=== PATIENT | female | born 2000 | race Caucasian/White ===

== ENCOUNTER 2024-10-05 20:53 | Observation (INO) | payer MEDICAID, SELFPAY ==
[2024-10-05] VITALS (7 sets, daily range): BP systolic 111–116; BP diastolic 65–66; PULSE 73–86; O2SAT 95–98; BMI 21.2
[2024-10-05 21:27] LABS: Add Urine Microscopic? YES; Appearance Urine Cloudy (Clear); Bacteria Urine Rare /hpf; Bilirubin Urine Negative (Negative); Blood Urine Negative (Negative); Color Urine Yellow (Yellow); Glucose Urine UA Negative (Negative); Ketones Urine Negative (Negative); Leukocyte Esterase Ur Trace LEU/UL (Negative); Nitrate Urine Negative (Negative); Non Pathogenic Casts 0-2; Protein Urine Negative (Negative); RBC Urine 0-2 /hpf (0-2); Specific Grav Ur 1.008 (1.001-1.035); Squamous Epithelial Cell Urine None Seen /hpf (Few); Urobilinogen Urine 0.2 mg/dL (<2.0); WBC Urine 0-5 /hpf (0-3); pH Urine 7.5 (5.0-9.0)
--- NOTE | 2024-10-05 21:29 | OBADM ---
This patient, Gillian Sullivan, admitted to the OB room [facility] for observation. Patient/family oriented to hospital policies and general routines including ID bracelet, bed and alarms, visiting hours, pain management, procedures, bathroom and other care routines, personal items, smoking policy, room service/diet, and visiting hours. Patient/Family are encouraged to report perceived risks to care and to ask questions if they do not understand what they are told or what they should do.
[2024-10-05] MEDS: NITROFURANTOIN MONOHYD MACROCR 100 MG CAP PO (22:04)
--- NOTE | 2024-10-05 22:15 | PC.NURSE ---
2052- Pt is a with a due date of 02/08/2025 that presents to unit with c/o cramping and LOF that started this evening. Pt denies complications with this . Pt denies vaginal bleeding and abdomen is soft to palpation. 2143- called and notified of pts arrival to unit. RN reported UA results, negative ROM+, as well as heart tones and presence of uterine irritability. Orders received for abx for UTI as well as discharge orders.
--- NOTE | 2024-10-06 10:20 | P.PNOB_ITS ---
OB - Triage/Final Diagnosis Visit Information Comments/Additional reasons for admission: I have assessed the risk for this patient, Gillian Sullivan, and determined that she would benefit from observation care. Evaluation Laboratory results: Laboratory Tests 10/05/24 21:18 Urine Color Yellow Urine Appearance Cloudy H Urine pH 7.5 Ur Specific [place] 1.008 Urine Protein Negative Urine Glucose (UA) Negative Urine Ketones Negative Ur Blood (Man) Negative Urine Nitrate Negative Urine Bilirubin Negative Urine Urobilinogen 0.2 Leukocyte Esterase Rfl Trace H Urine RBC 0-2 Urine WBC 0-5 Ur Squamous Epith Cells None seen Urine Bacteria Rare Urine Casts 0-2 Vital signs: Vital Signs - 24 hr 10/05/24 21:22 10/05/24 21:27 10/05/24 21:29 Pulse Rate 76 Blood Pressure 116/66 Pulse Oximetry 95 96 Oxygen Delivery Room Air 10/05/24 21:31 10/05/24 21:32 10/05/24 21:37 Pulse Rate 77 Blood Pressure 111/65 Pulse Oximetry 96 96 Oxygen Delivery 10/05/24 21:42 10/05/24 21:47 Pulse Rate Blood Pressure Pulse Oximetry 96 98 Oxygen Delivery Final Diagnosis (1) Vaginal discharge: Code(s): N89.8 - Other specified noninflammatory disorders of vagina Status: Acute (2) UTI (urinary tract infection): Code(s): N39.0 - Urinary tract infection, site not specified Status: Acute
== END 2024-10-05 22:15 | disposition home or self-care (01) ==
PROVIDERS: Admitting Provider Obstetrics & Gynecology; Visit Provider Obstetrics & Gynecology
DX: O26.899 Other specified pregnancy related conditions, unspecified trimester (principal); N89.8 Other specified noninflammatory disorders of vagina; O23.40 Unspecified infection of urinary tract in pregnancy, unspecified trimester; N39.0 Urinary tract infection, site not specified; Z3A.00 Weeks of gestation of pregnancy not specified
CPT/HCPCS: 59025; 81001; A9270; G0378; G0379

== ENCOUNTER 2024-11-29 14:22 | Observation (INO) | payer OTHER, SELFPAY ==
[2024-11-29] VITALS (8 sets, daily range): BP systolic 112–125; BP diastolic 72–76; PULSE 78–102; O2SAT 99–100; BMI 23.9
--- OUTSIDE RECORDS SUMMARY | 2024-11-29 14:30 | XMS_ITS | Data Portability ---
Author Organization [employer] , [facility] Address [address] [place] [address] Assessment No assessment recorded. Plan of Treatment Reminders Order Date Submit Date Provider Last Modified By Organization Details Last Modified Time Details Appointments OB RETURN EST 2024 12:45P M Divina Stevenson MD Not available Not available Not available Lab CBC w/ auto diff 2024 025 [facility], [address] [place], [address], 11/08/2024 12:24:30 obstetric screen, serum or blood 2024 025 [facility], [address] [place], [address], 11/07/2024 13:58:29 glucose tolerance test, post-50G, 1-hour 2024 025 [facility], [address] [place], [address], 10/25/2024 10:51:24 Referral None recorded. Procedures None recorded. Surgeries None recorded. Imaging US, obstetric , limited 2024 025 [facility] Not available 10/24/2024 19:04:05 US, obstetric , 2nd or 3rd trimester 2023 024 [facility] Not available 09/06/2024 12:16:23 Medication Orders ondansetr on HCl 4 mg tablet 2024 025 [id number] [facility], [address] , [place], [address], 11/27/2024 17:54:57 Patient TargetsNo targets recorded. Patient Instructions Encounter Date Encounter Id Patient Instructions Last Modified By Organization Details Last Modified Time 10/24/2024 [id number] learning about screening for gestational diabetes [email or web address] Not available 10/24/2024 10:21:24 Reason for Referral None Reported. Results Created Date Observation Date Name Description Value Unit Range Abnormal Flag Note LastModifiedBy Organization Detail LastModifiedTime 08/06/20 24 08/08/2024 MATER NAL SERUM AFP interpretati on: Scree n negat mary for open NTD. Not Available [facility] [address], [address], 08/08/2024 14:38:55 08/06/20 24 08/08/2024 MATER NAL SERUM AFP risk for ontd 1 IN [address] Not Available [address], [address], 08/08/2024 14:38:55 08/06/20 24 08/08/2024 MATER NAL SERUM AFP AFP, serum 49.7 NG/mL Not Available [facility] [address], [address], 08/08/2024 14:38:55 08/06/20 24 08/08/2024 MATER NAL SERUM AFP AFP MOM 1.30 Not Available [facility] [address], [address], 08/08/2024 14:38:55 08/06/20 24 08/08/2024 MATER NAL SERUM AFP comments: This patie nt's TEREZA (maddie mated date of richardson tamie) was used to calcu late the gesta martell l age. The AFP test resul t indic ates that this patie nt is scree n negat mary for open NTD. It shoul d be noted that naseem l test resul ts can never guara ntee the of a naseem l baby and that [facility] have some type of physi amber or menta l defec t, many of which are undet ectab le throu gh any known prena gab diagn ostic techn ique. Not Available [employer] [facility] [address] [place], [address], 08/08/2024 14:38:55 08/06/20 24 08/08/2024 MATER NAL SERUM AFP comment This is a scree lester test, not a diagn ostic test. This risk asses sment repor t is based in part on demog raphi c data provi ded by the order ing physi katherine. Pleas e notif y the labor atory promp tly if any data are incor rect. For medina tance with recal culat ions, pleas e call your local [facility] at[facility] . For medina tance with inter preta tion of these resul ts, pleas e conta ct your Local [facility] jose rafael ic couns elor or call [phone] INFO( [phone]). Inter preti ve Cutof fs Scree n Posit mary for Open NTD: > or = 2.50 adjus kike MOM > or = 1.90 adjus kike MOM for insul in-de pende nt diabe tics > or = 4.00 adjus kike MOM for twins > or = 3.50 adjus kike MOM for twins insul in-de pende nt diabe tics > or = 4.50 adjus kike MOM for tripl ets For addit ional infor claudia dobbins e refer to http: //[facility] josé luis mcbride.que stdia gnost ics.c om/fa q/FAQ 74v1 (This link is being provi ded for infor erasmo moreau/ educa martell l purpo ses only. ) Not Available [facility] [address] [place], [address], 08/08/2024 14:38:55 08/06/20 24 08/08/2024 MATER NAL SERUM AFP calc'd gestational age 16.7 weeks Not Available [facility] [address] [address], [place], [address], 08/08/2024 14:38:55 08/06/20 24 08/08/2024 MATER NAL SERUM AFP maternal weight 144 lbs Not Available [address], [address], 08/08/2024 14:38:55 08/06/20 24 08/08/2024 MATER NAL SERUM AFP est'd date of delivery 2024 Not Available [address], [address], 08/08/2024 14:38:55 08/06/20 24 08/08/2024 MATER NAL SERUM AFP tereza determined by LMP Not Available [address], [address], 08/08/2024 14:38:55 08/06/20 24 08/08/2024 MATER NAL SERUM AFP mother's ethnic origin CAUCAS DEANNA Not Available [address], [address], 08/08/2024 14:38:55 08/06/20 24 08/08/2024 MATER NAL SERUM AFP number of fetuses 1 Not Available [address], [address], 08/08/2024 14:38:55 08/06/20 24 08/08/2024 MATER NAL SERUM AFP insulin depend diabetic NO Not Available [address], [address], 08/08/2024 14:38:55 08/06/20 24 08/08/2024 MATER NAL SERUM AFP repeat specimen NO Not Available [address], [address], 08/08/2024 14:38:55 08/06/20 24 08/08/2024 MATER NAL SERUM AFP Hx of neural tube defects NO Not Available [address], [address], 08/08/2024 14:38:55 08/06/20 24 08/08/2024 MATER NAL SERUM AFP prev down synd NO Not Available [facility] [address] [place], [address], 08/08/2024 14:38:55 08/06/20 24 08/08/2024 MATER NAL SERUM AFP donor egg NO Not Available [facility] [address] [place], [address], 08/08/2024 14:38:55 08/06/20 24 08/08/2024 MATER NAL SERUM AFP donor age: egg retrieval NOT GIVEN Not Available [facility] [address] [place], [address], 08/08/2024 14:38:55 10/24/19 25 10/25/2024 (50G) 1HR - GLUCO SE HEBER ANCE TEST, GESTA MARTELL L SCREE N glucose (50g) 1 hour 111 mg/dL <135 normal Not Available [facility] [address] [place] [address], [address], 10/25/2024 10:51:24 11/05/19 25 11/07/2024 OB 28W (SYPH HIV 1/2 Ag/Ab Non-Re active non-re active normal Not Available [address], [address], 11/07/2024 13:58:29 11/05/19 25 11/07/2024 OB 28W (SYPH syphilis Ab Non-Re active non-re active normal Not Available [address], [address], 11/07/2024 13:58:29 11/05/19 25 11/07/2024 CBC (INCL UDES DIFF/ PLT) WBC 11.1 thous and/u L 4.0 - 9.8 high Not Available [facility] [address] [place] [address], [address], 11/08/2024 12:24:30 11/05/19 25 11/07/2024 CBC (INCL UDES DIFF/ PLT) RBC 3.8 mai on/uL 3.9 - 4.9 low Not Available [employer] [address] [place] [address], [address], 11/08/2024 12:24:30 11/05/19 25 11/07/2024 CBC (INCL UDES DIFF/ PLT) hemoglobin 11.2 g/dL 11.8 - 14.8 low Not Available [employer] [address] [place] [address], [address], 11/08/2024 12:24:30 11/05/19 25 11/07/2024 CBC (INCL UDES DIFF/ PLT) hematocrit 34.6 % 35.5 - 44.0 low Not Available [employer] [address] [place] [address], [address], 11/08/2024 12:24:30 11/05/19 25 11/07/2024 CBC (INCL UDES DIFF/ PLT) MCV 91.3 fL 82.0 - 99.0 normal Not Available [employer] [address] [place] [address], [address], 11/08/2024 12:24:30 11/05/19 25 11/07/2024 CBC (INCL UDES DIFF/ PLT) MCH 29.6 pg 27.2 - 32.6 normal Not Available [employer] [address] [place] [address], [address], 11/08/2024 12:24:30 11/05/19 25 11/07/2024 CBC (INCL UDES DIFF/ PLT) MCHC 32.4 g/dL 31.5 - 35.5 normal Not Available [employer] [address] [place] [address], [address], 11/08/2024 12:24:30 11/05/19 25 11/07/2024 CBC (INCL UDES DIFF/ PLT) RDW-CV 13.5 % 11.5 - 14.5 normal Not Available [address], [address], 11/08/2024 12:24:30 11/05/19 25 11/07/2024 CBC (INCL UDES DIFF/ PLT) platelet 287 thous and/u L 140 - 350 normal Not Available [address], [address], 11/08/2024 12:24:30 11/05/19 25 11/07/2024 CBC (INCL UDES DIFF/ PLT) MPV 10.3 fL 9.3 - 12.4 normal Not Available [address], [address], 11/08/2024 12:24:30 11/05/19 25 11/07/2024 CBC (INCL UDES DIFF/ PLT) absolute neutrophil 8.40 thous and/u L 1.90 - 7.00 high Not Available [address], [address], 11/08/2024 12:24:30 11/05/19 25 11/07/2024 CBC (INCL UDES DIFF/ PLT) absolute lymphocyte 1.54 thous and/u L 0.70 - 4.50 normal Not Available [address], [address], 11/08/2024 12:24:30 11/05/19 25 11/07/2024 CBC (INCL UDES DIFF/ PLT) absolute monocyte 0.89 thous and/u L 0.10 - 1.30 normal Not Available [address], [address], 11/08/2024 12:24:30 11/05/19 25 11/07/2024 CBC (INCL UDES DIFF/ PLT) absolute eosinophil 0.10 thous and/u L <0.70 normal Not Available [address], [address], 11/08/2024 12:24:30 11/05/19 25 11/07/2024 CBC (INCL UDES DIFF/ PLT) absolute basophil 0.10 thous and/u L <0.20 normal Not Available [address], [address], 11/08/2024 12:24:30 11/05/19 25 11/07/2024 CBC (INCL UDES DIFF/ PLT) absolute immature granulocyte 0.10 thous and/u L <0.03 high Not Available [address], [address], 11/08/2024 12:24:30 09/06/20 24 09/05/2024 US, obste tric, 2nd or 3rd trime ster No observ ation record ed. [email or web address] [address], [place], [address], 09/11/2024 18:07:10 10/24/19 25 10/24/2024 US, obste tric, limit ed No observ ation record ed. [email or web address] [address], [place], [address], 10/27/2024 17:56:28 Result Notes None recorded. Problems Name Problem SNOMED Code Status Onset Date Resolution Date Notes Provider Name and Address Organization Details Recorded Time 69513020 Active 2023 UMANG RIDDLE NP [address] [place], [address], [facility] 4 15:41:01 Varicella non-immune 532473111 Active UMANG RIDDLE NP [address] [place], [address], [employer] [facility] 4 13:48:05 Rubella non-immune 265018604 Active UMANG RIDDLE NP [address] [place], [address], [facility] 4 13:48:12 Large for gestation age fetus 853883099 Active 2024 99%tile on 09/05 UMANG RIDDLE NP [address] [place], [address], [facility] 17:13:25 History of musculoske letal disease 074809462 Active 2024 Will need ane. Consultati on due to scoliosis. UMANG RIDDLE NP [address] [facility], [place], [address], [facility] - [facility] 21:35:00 Problem Notes None recorded. Procedures Surgical History Date Name Laterality Status Provider Name and Address Organization Details Recorded Time 01/15/2023 Date of Last Pap Smear completed Chacha Pham [facility] [employer] [facility] 06/10/2024 14:05:05 Imaging Results Imaging Date Name Status LastModified by Organiz ation Details LastModified Time 09/05/2024 US, obstetric, 2nd or 3rd trimester completed [email or web address] [address], [place], [address], 09/11/2024 18:07:10 10/24/2024 US, obstetric, limited completed [email or web address] [address], [place], [address], 10/27/2024 17:56:28 Procedure Notes None recorded. Medical Equipment None Reported. Allergies Allergen ID Allergen Name Allergen Category Reaction Reaction Severity Criticality Documentation Date Start Date Code Code System Note Provider Name and Address Organization Details Recorded Time 240518 amoxicill in medicatio n Not available Not available Not available 06/10/2024 723 RxNorm Not Available Not Available Not Available 570238 wheat preparati on food,medi cation Not available Not available Not available 06/10/2024 14312 52 RxNorm Not Available Not Available Not Available 560089 mold extract environme nt Not available Not available Not available 06/10/2024 43197 8 RxNorm Not Available Not Available Not Available 871310 doxycycli ne Not available Not available Not available Not available 10/24/20242023 3640 RxNorm vomit ing unrec ogniz ed react ion (text : GI Upset , code: 05677 5008) (from exter nal sourc e) Not Available Not Available Not Available 718188 sulfameth oxazole medicatio n nausea Not available Not available 10/24/20242021 97721 RxNorm Not Available Not Available Not Available 384607 cow milk allergeni c extract food,medi cation nausea Not available Not available 10/24/20242021 32161 5 RxNorm Not Available Not Available Not Available 046000 wheat dextrin food,medi cation nausea Not available Not available 10/24/20242021 40581 6 RxNorm Not Available Not Available Not Available Medications Name Sig Start Date Stop Date Status Note LastModified by Organization Details LastModified Time cimetidine 400 mg tablet active Not Available Not Available Not Available ondansetron HCl 4 mg tablet TAKE 2 TABLETS BY MOUTH TWICE A DAY 2024 active Not Available Not Available Not Avai lable active Not Available Not Avai lable Not Available ondansetron 07/16 completed Not Available Not Available Not Available Vitals Date Recorded Body weight Body mass index (BMI) Body height Systolic blood pressure Diastolic blood pressure Provider Name and Address Organization Details Last Updated DateTime 09/05/2024 89693.44 787 g 20.5 kg/m2 182.88 cm 110 mm[Hg] 74 mm[Hg] [facility] 4 15:59:10 Date Recorded Body weight Body mass index (BMI) Body height Systolic blood pressure Diastolic blood pressure Provider Name and Address Organization Details Last Updated DateTime 10/01/2024 31541.40 972 g 21.2 kg/m2 182.88 cm 98 mm[Hg] 64 mm[Hg] [facility] 5 17:10:31 Date Recorded Body height Body mass index (BMI) Body weight Systolic blood pressure Diastolic blood pressure Provider Name and Address Organization Details Last Updated DateTime 10/24/2024 182.88 cm 21.5 kg/m2 59454.75 g 104 mm[Hg] 70 mm[Hg] Jacquelin Ortiz [facility] [facility] 5 10:01:39 Date Recorded Body height Body mass index (BMI) Body weight Systolic blood pressure Diastolic blood pressure Provider Name and Address Organization Details Last Updated DateTime 11/05/2024 182.88 cm 22.5 kg/m2 47816.61 g 120 mm[Hg] 70 mm[Hg] Michael Nguyễn [place] [facility] 5 16:51:16 Date Recorded Body height Body mass index (BMI) Body weight Systolic blood pressure Diastolic blood pressure Provider Name and Address Organization Details Last Updated DateTime 11/26/2024 182.88 cm 23.3 kg/m2 17936.45 g 114 mm[Hg] 72 mm[Hg] Tameka Short [place] [facility] 5 17:46:29 Social History Question Answer Notes LastModified by [employer] Details LastModified Time Tobacco Smoking Status Never Smoker Chacha Pham debra, [employer] [facility] 06/10/2024 14:05:05 What Is Your Level Of Alcohol Consumption? None [email or web address] Information not available 06/10/2024 If You Are , What Was Your Level Of Alcohol Consumption Prior To ? None [email or web address] Information not available 06/10/2024 Are You Blind Or Do You Have Difficulty Seeing? No [email or web address] Information not available 06/10/2024 Are You Currently Employed? No Information not available 06/10/2024 Are You Deaf Or Do You Have Serious Difficulty Hearing? No [email or web address] Information not available 06/10/2024 What Type Of Diet Are You Following? GLUTENFREE [email or web address] Information not available 06/10/2024 How Many Children Do You Have? 0 [email or web address] Information not available 06/10/2024 What Is Your Relationship Status? Domestic Partner [email or web address] Information not available 06/10/2024 Are You Sexually Active? Yes [email or web address] Information not available 06/10/2024 Do You Use Any Illicit Or Recreational Drugs? No [email or web address] Information not available 06/10/2024 Sex: Unknown Functional Status Question Answer Note LastModified by Organizat ion Details LastModified Time What is your exercise level? Occasional Information not available 06/10/2024 Mental Status None recorded. Family History Relationship Description Onset Age of this Age Resolved Age Notes LastModified by Organization Details LastModified Time Mother Hypertensive disorder [email or web address] Not available 2023 14:05:04 Maternal Grandfather Cerebrovascu lar accident [email or web address] Not available 14:05:04 Medical History Condition Response Anemia Y Gynecological History Statement/Question Response Date of Last Colonoscopy Frequency of Cycle (Q days) 21 Date of LMP 04/14/2024 Most Recent Bone Density Date of Last Pap Smear 01/15/2023 Duration of Flow (days) 4 Most Recent Mammogram Current Control Method Age at Menarche 16 Obstetrics History GPAL:G 1 P 0 0 0 0 Past Encounters Encounter ID Performer Location Encounter Start Date Encounter Closed Date Diagnosis/Indication Diagnosis SNOMED-CT Code Diagnosis ICD10 Code Diagnosis Note [id number] UMANG RIDDLE NP [facility] [address] [place] [address] 06/10/2024 13:48:06 06/11/2024 11:27:11 test positive 464091234 Z32.01 Pt presents today for a confirmati on of visit. has not been previously confirmed at another healthcare facility. Pt voiced that she is happy about this . TVUS today showed:IUP with Cardiac Activity. TEREZA consistent with LMP. TEREZA:01/19/25 Gestationa l Age:8 w 1 dFHT:171 First trimester teaching provided.- --Foods and activities to avoid---We ight gain recommenda tions based on BMI---Safe meds---Bryon entation to practice-- -Delivery locations- --CHESTER visit progressio n---Prenat al vitamins daily---To xoplasmosi s precaution s reviewed-- -[facility] Guide; What to expect on your maternity journey -- -S/S of SAB reviewed and when to seek care RTC for 1st OB, Labs, and Physical. --BMI:19.3 Nausea and vomiting in 9220245275 O21.9 Patient received Zofran from ER and would like a refil. Discussed constipati on with the use of zofran. patient verbalizes understand ing of increase fluid and use of stool softeners. [id number] UMANG RIDDLE NP [facility] [address] [place] [address] 07/16/2024 16:44:51 07/21/2024 10:05:16 Normal 48628807 Z34.92 Pt comes in today for a New/First OB visit.Gest ation:13 w3 dEDD: 01/19 -- PMH: NPMH-- Medication s: Taking daily PNV, Zofran-- Previous OB History:-- Mom/Sister s with hx of Pre-Eclamp noah: denies-- History of Genital HSV:denies -- Genetic Questions in OB Episode Done-- Accepts [employer]. Would like to know gender. Discussed logging on to the [employer] portal to find Gender Results-- PAP due POC-- NOB labs done today-- Accepts Declines UNITY-- PAP due-- Pre-Pregna ncy BMI:19.3-- RTC 4 weeks Guide: Given and reviewed. Toxoplasmo sis precaution s reviewed. Reviewed office visit schedule during . Reviewed Quickening and normal FHTs. screening 2437 48881 Z36.89 Carrier de tection, molecular genetics 8467274 Z14.8 Gastroesop hageal reflux disease without esophagitis 202639132 K21.9 Patient with history Of GERD reports worsening of symptoms in addition to N/V [id number] UMANG RIDDLE NP [facility] [address] [place] [address] 08/06/2024 16:38:02 08/07/2024 09:29:44 Gestation period, 16 weeks 92866528 Z3A.16 Normal 6639667 2 Z34.90 Pt is here for a CHESTER appointmen t. She is taking vitamins. She has no complaints or questions. Reports feeling movement. Denies vaginal bleeding, abdominal cramps, N/V, contractio ns, or LOF. Denies headache, vision changes, swelling of hands or face, and epigastric pain. Discussed PTL and precaution s given. There are no identifiab le risk factors for pre-term labor. [id number] UMANG RIDDLE NP [facility] [address] [place] [address] 09/05/2024 15:54:13 09/08/2024 14:32:04 Gestation period, 20 weeks 46510951 Z3A.20 Normal 7441021 2 Z34.90 Pt is here for a CHESTER appointmen t. She is taking vitamins. She has no complaints or questions. Reports feeling movement. Denies vaginal bleeding, abdominal cramps, N/V, contractio ns, or LOF. Denies headache, vision changes, swelling of hands or face, and epigastric pain. Discussed PTL and precaution s given. There are no identifiab le risk factors for pre-term labor. [id number] UMANG RIDDLEARTHUR [facility] [address] [place] [address] 10/01/2024 17:06:58 10/14/2024 14:28:35 Normal 95791506 Z34.92 Pt is here for a CHESTER appointmen t. She is taking vitamins. She has no complaints or questions. Reports feeling movement. Denies vaginal bleeding, abdominal cramps, N/V, contractio ns, or LOF. Denies headache, vision changes, swelling of hands or face, and epigastric pain. Discussed PTL and precaution s given. There are no identifiab le risk factors for pre-term labor. Gestation period, 24 weeks 941110590 Z3A.24 [id number] UMANG RIDDLE NP [place] [id number] [place] [address] 10/24/2024 09:02:34 10/24/2024 13:44:50 Gestation period, 28 weeks 87334324 Z3A.28 Normal 1060228 2 Z34.93 Pt is here for a CHESTER appointmen t. She is taking vitamins. She has no complaints or questions. Reports feeling movement. Denies vaginal bleeding, abdominal cramps, N/V, contractio ns, or LOF. Denies headache, vision changes, swelling of hands or face, and epigastric pain. Discussed PTL and precaution s given. There are no identifiab le risk factors for pre-term labor. screening 2437 [address] Z36.89 Large for gestation age fetus 831671282 O36.60X0 [id number] UMANG RIDDLEARTHUR [address] [address] 11/05/2024 16:33:46 11/06/2024 11:24:47 Gestation period, 29 weeks 73327809 Z3A.29 High risk 4720 0007 O09.93 Pt is here for a CHESTER appointmen t. She is taking vitamins. She has no complaints or questions. Reports feeling movement. Denies vaginal bleeding, abdominal cramps, N/V, contractio ns, or LOF. Denies headache, vision changes, swelling of hands or face, and epigastric pain. Discussed PTL and precaution s given. There are no identifiab le risk factors for pre-term labor. screening 2437 [address]40[address] Z36.89 [id number] UMANG RIDDLE NP [facility] [address] [place] [address] 11/26/2024 16:50:23 11/28/2024 14:49:13 Gestation period, 32 weeks 8311467 Z3A.32 Normal 5004174 2 Z34.90 Pt is here for a CHESTER esparza. She is taking vitamins. She has no complaints or questions. Reports feeling movement. Denies vaginal bleeding, abdominal cramps, N/V, contractio ns, or LOF. Denies headache, vision changes, swelling of hands or face, and epigastric pain. Discussed PTL and precaution s given. There are no identifiab le risk factors for pre-term labor. Nausea and vomiting in 9467540935 O21.9 Patient received Zofran from ER and would like a refil. Discussed constipati on with the use of zofran. patient verbalizes understand ing of increase fluid and use of stool softeners. Health Concerns Section Related Observation LastModified by Organization Detai ls LastModified Time None Recorded Concern Status LastModified by Organization Details LastModified Time None Recorded Advance Directives Directive None Recorded Payers Encounter Date Sequence Insurance Name Policy Number Policy Adam Covered Member ID Adam Member ID Guarantor Name 10/01/2024 1 [place] Gillian Sullivan [id number] Gillian Sullivan 10/24/2024 1 [place] Gillian Sullivan [id number] Gillian Sullivan 11/05/2024 1 [place] Gillian Sullivan [id number] Gillian Sullivan 11/26/2024 1 [employer] [place] - DOS ON OR AFTER 2020 (MEDICAID REPLACEMENT - HMO) Gillian Sullivan [id number] Gillian Sullivan Notes Date Note Type Note Provider Name and Address Organization Details Recorded Time 09/05/2024 text/html Patient is here today for a routine OB visit. She is currently at {{6 7 8 9 10 11 1 2 13 14 15 16 17 18 19 20 21 22 23 24 25 26 27 28 2 9 30 31 32 33 34 35 36 37 38 39 40 41 20.4#}} weeks gestation. vitamins: {{yes* no}} She {{has* has not}} felt movement.She denies any complaints of the presence of vaginal bleed, leaking fluid, abdominal cramps, nausea, vomiting, headache or visual disturbances. No concerns UMANG RIDDLE NP [address] [place], [address], [facility] 09/05/2024 17:52:35 10/01/2024 text/html Patient is here today for a routine OB visit. She is currently at {{6 7 8 9 10 11 1 2 13 14 15 16 17 18 19 20 21 22 23 24 25 26 27 28 2 9 30 31 32 33 34 35 36 37 38 39 40 41 24.2#}} weeks gestation. vitamins: {{yes* no}} She {{has* has not}} felt movement.She denies any complaints of the presence of vaginal bleed, leaking fluid, abdominal cramps, nausea, vomiting, headache or visual disturbances. Pt. has no concerns. UMANG RIDDLE NP [address] [place], [address], [facility] IV 10/05/2024 21:35:22 10/24/2024 text/html Patient is here today for a routine OB visit. Pt was unable to provide a urine sample. Pt scored a 2 on PHQ-9. She is currently at 27.4 weeks gestation. vitamins: {{yes* no}} She {{has has not has #}} felt movement.She denies any complaints of the presence of vaginal bleed, leaking fluid, abdominal cramps, nausea, vomiting, headache or visual disturbances. Pt. has no concerns. EPDS is UMANG RIDDLE NP [address] [place], [address], [employer] IV 10/24/2024 12:58:42 11/05/2024 text/html Patient is here today for a routine OB visit. She is currently at {{6 7 8 9 10 11 1 2 13 14 15 16 17 18 19 20 21 22 23 24 25 26 27 28 2 9 30 31 32 33 34 35 36 37 38 39 40 41 29.2#}} weeks gestation. vitamins: {{yes* no}} She {{has* has not}} felt movement.She denies any complaints of the presence of vaginal bleed, leaking fluid, abdominal cramps, nausea, vomiting, headache or visual disturbances. No concerns UMANG RIDDLE NP [address] [place], [address], [facility] IV 11/06/2024 09:49:35 11/26/2024 text/html Patient is here today for a routine OB visit. She is currently at {{6 7 8 9 10 11 1 2 13 14 15 16 17 18 19 20 21 22 23 24 25 26 27 28 2 9 30 31 32 33 34 35 36 37 38 39 40 41 32.3#}} weeks gestation. vitamins: {{yes* no}} She {{has* has not}} felt movement.She denies any complaints of the presence of vaginal bleed, leaking fluid, abdominal cramps, nausea, vomiting, headache or visual disturbances. No concerns UMANG RIDDLE NP [address] [place], [address], [facility] [employer] IV 11/27/2024 17:55:05 OBGyn Episode Ob Episode Information Episode Created Date Number of Fetuses Patient Bloodtype Patient rh Status Prepregnancy Weight lbs Domestic Partner Domestic Partner Phone Father Name Corporate Concierge Status 07/17/20 24 1 O Positive OPEN Fetus Data First Name Last Name Admitted to NICU Weight (g) Sex Living Outcome Pediatric Complications Fetus ID Race Codes Race Delivery Type [id number] Problems Problem Notes Problem Name Start Date End Date Resolution Snomed Code Not e History of musculoskeletal disease 10/01/2024 [id number] Will need ane. Consultation due to scoliosis. Large for gestation age fetus 10/01/[id number] 99%tile on 08/18 0 Varicella non-immune [id number] Rubella non-immune [id number] Tereza Calculation Initial Tereza Date Initial Exam Date Initial Exam Provider Initial Ultrasound Date Last Menstrual Period Date Ultra Sound Weeks Gestation 01/19/2025 07/17/2024 06/10/2024 0 Eighteen To Twenty Week Tereza Update Ultra Sound Date Fundal Height At Umbil Quickening Date Ultra Sound Latest Weeks Gestation Final Tereza Confirmed By Final Tereza Confirmed Date Final Tereza Date Ultra Sound Latest Days Gestation 0 01/20/20 25 0 Pre- Flowsheet Flowsheet Date 08/06/2024 Abraham Score Blood Edema Fundus Height Fundus Units Glucose Ketones Leukocytes Nitrite Labor Signs Protein Cervic Dilation Cervic Effacement Cervic Station none neg Type Weight in lbs Pre/Post Dialysis Refused 147.791393524907 BP Diastolic BP Location Tested BP Systolic BP Type 70 L arm 118 sitting Fetus Heart Rate Present A 143 Fetus Movement A Yes Comments AFP today. reporting round l igament pain. PTL adn SAB precautions reviewed. patient concerned about right ovarian cyst reevaluate with anatomy US. RTC 4 wks Flowsheet Date 09/05/2024 Abraham Score Blood Edema Fundus Height Fundus Units Glucose Ketones Leukocytes Nitrite Labor Signs Protein Cervic Dilation Cervic Effacement Cervic Station none neg Type Weight in lbs Pre/Post Dialysis Refused 151.335755632799 BP Diastolic BP Location Tested BP Systolic BP Type 74 110 sitting Fetus Heart Rate Present A 145 Present Fetus Movement A Yes Comments Anatomy complete 99%tile ant erior placenta. RTC in 4 wks Flowsheet Date 10/01/2024 Abraham Score Blood Edema Fundus Height Fundus Units Glucose Ketones Leukocytes Nitrite Labor Signs Protein Cervic Dilation Cervic Effacement Cervic Station none none neg Type Weight in lbs Pre/Post Dialysis Refused 156.586867271020 BP Diastolic BP Location Tested BP Systolic BP Type 64 98 sitting Fetus Heart Rate Present A 140 Present Fetus Movement A Yes Comments No OB complaints. discussed Gtt and early testing due to EFW. unable to do today due to being late in the day. RTC for gtt. Flowsheet Date 10/24/2024 Abraham Score Blood Edema Fundus Height Fundus Units Glucose Ketones Leukocytes Nitrite Labor Signs Protein Cervic Dilation Cervic Effacement Cervic Station none 26 cm Backpain Type Weight in lbs Pre/Post Dialysis Refused Weight 158.247306623356 BP Diastolic BP Location Tested BP Systolic BP Type 70 104 Fetus Heart Rate Present A 147 Fetus Movement A Yes Comments GTT and Growth today,EFW 89% tile. patient educated on LGA as this does not change Gestational age or due date. RTC in 2 wks for 3T labs Flowsheet Date 11/05/2024 Abraham Score Blood Edema Fundus Height Fundus Units Glucose Ketones Leukocytes Nitrite Labor Signs Protein Cervic Dilation Cervic Effacement Cervic Station none Rochelle Hdez 1+ Type Weight in lbs Pre/Post Dialysis Refused With clothes 165.159227435600 BP Diastolic BP Location Tested BP Systolic BP Type 70 120 sitting Fetus Heart Rate Present Fetus Movement A Yes Comments No OB concerns. 3T labs toda y. Patient encouraged to get Tdap, PTL precautions reviewed. RTC in 2 wks Flowsheet Date 11/26/2024 Abraham Score Blood Edema Fundus Height Fundus Units Glucose Ketones Leukocytes Nitrite Labor Signs Protein Cervic Dilation Cervic Effacement Cervic Station 28 cm Gilbert Hdez Type Weight in lbs Pre/Post Dialysis Refused With clothes 171.938308547540 BP Diastolic BP Location Tested BP Systolic BP Type 72 114 sitting Fetus Heart Rate Present A 148 Present Fetus Movement A Yes Comments No OB complaints. Growth US at next appt. PTL precautions reviewed. RTC in 2 wks. Menstrual History Last Menstrual Date Menses Monthly On Bcp Conception Prior Menses Frequency Hcg Plus Date Menarche Onset Age Delivery Information Delivery Date Delivery Type Labor Anesthesia Weeks Gestation Incision Type Labor Labor Length Hrs Delivered By Post Complications Tubal Sterilization Discharge Date Comments Discharge Information Feeding Method Contraceptive Method Maternal HG B and HCT Levels
--- OUTSIDE RECORDS SUMMARY | 2024-11-29 14:30 | XMS_ITS | Clinical Summary ---
Author Organization [facility] Address [address] [place] [id number] Care Team Providers Care Agricultural Researcher Name Role Phone None, Provider MD Primary Care Provider Unavaila ble Allergies Active Allergy Reactions Criticality Noted Date Comments Amoxicillin GI Upset 03/13/2024 Immediate vomiting Doxycycline GI Upset 03/13/2024 vomiting Medications ondansetron (ZOFRAN-ODT) 4 MG disintegrating tablet Take 1 tablet (4 mg total) by mouth every 8 (eight) hours as needed for Nausea. 20 tablet Active Social History Tobacco Use Types Packs/Day Years Used Date Smoking Tobacco: Never Passive Smoke Exposure: Never Smokeless Tobacco: Never Tobacco Cessation:Counseling Given: Not Answered Alcohol Use Standard Drinks/Week Comments Not Currently 0 (1 standard drink = 0.6 oz pur e alcohol) Comments Yes Sex and Gender Information Value Date Recorded Sex Assigned at Not on file Legal Sex Female 10:41 PM CDT Gender Identity Not on file Sexual Orientation Not on file Last Filed Vital Signs Vital Sign Reading Time Taken Comments Blood Pressure 111/73 05/29/2024 1:57 AM CDT Pulse 78 05/29/2024 1:57 AM CDT Temperature 36.8 C (98.3 F) 05/28/2024 10:05 PM CDT Respiratory Rate 16 05/29/2024 1:57 AM CDT Oxygen Saturation 100% 05/29/2024 1:57 AM CDT Inhaled Oxygen Concentration - - Weight 66.2 kg (145 lb 15.1 oz) 024 10:05 PM CDT Height 182.9 cm (6') 05/28/2024 10:05 PM CDT Body Mass Index 19.79 05/28/2024 10:05 PM CDT Plan of Treatment Health Maintenance Due Date Last Done Comments Cervical Cancer Screening Pap Smear (Age 21 to 29) Every 3 Years 2002 Cervical Cancer Screening 2002 Annual Physical 2005 Chlamydia Screening Females ages 16-24 2018 Meningococcal B Vaccine (1 of 2 - Standard) 2018 Hepatitis C 01/17/2020 DTaP, Tdap and Td Vaccines (8 - Td or Tdap) 02/25/2023 02/25/2013, 02/25/2013, 01/22/2006, Additional history exists COVID-19 Vaccine ( - 2023- season) 2024 Influenza Adult (#1) 2024 RSV Immunization or 60+ Years (1 - 1-dose 75+ series) 2077 Hepatitis B Vaccines Completed 2002, 2002, 2002 Pneumococcal Vaccine: Pediatrics (0 to 5 Years) and At-Risk Patients (6 to 64 Years) Aged Out 01/20/2003, 2002, 2002, Additional history exists No longer eligible based on patient's age to complete this topic HPV Vaccines Completed 01/22/2017, 02/16, 01/11/2016 Meningococcal Vaccine Completed 05/28/2019, 013 RSV Immunizations Under 20 Months Aged Out No longer eligible based on patient's age to complete this topic Insurance [facility] Care Teams Agricultural Researcher Relationship Specialty Start Date End Date None, Provider, MD PCP - General UNKNOWN PHYSICIAN SPECIALTY 03/14/24
--- OUTSIDE RECORDS SUMMARY | 2024-11-29 14:30 | XMS_ITS | Data Portability ---
Author Organization [place] - [facility] Telehealth Address [address] [facility] [address] [place] [id number] Assessment Encounter Date Assessment Date Assessment LastModified by Organization Details LastModified Time 05/25/2022 05/25/2022 spend >45 minutes - discussing conventional / non-conventiona l treatments, different health models like rain barrel and [facility] approach to health care and various laboratory testing. Potential out-of pocket cost discussed Not available 05/25/2022 14:23:26 10/18/2023 10/18/2023 Spent >45 minutes - discussing conventional / non-conventiona l treatments, different health models like rain barrel, [facility] approach to health care, and various laboratory testing. Potential out-of pocket cost discussed. This case was discussed with the supervising physician, Dr. Esteban Figueroa. [email or web address] Not available 10/17/2023 15:40:18 11/21/2023 11/21/2023 >50% of this 30 minute visit was spent counselling and coordinating care. This case was discussed with the supervising physician, Dr. Esteban Figueroa. [email or web address] Not available 11/21/2023 06:16:00 Plan of Treatment Reminders Order Date Submit Date Provider Last Modified By Organization Details Last Modified Time Details Appointments None recorded. Lab vitamin D, 25-hydroxy, total, serum 2023 024 [facility], [address], [address], [place], [address], 16:25:50 coenzyme Q10, total, serum or plasma 2023 024 [facility], [address], [address], [place], [place], [address], 4 16:25:52 TSH, serum or plasma 2023 024 [facility] [address], [address], [place], [place], [address], 4 16:25:49 magnesium, RBC 2023 024 [facility] [address], [address], [place], [address], 4 16:25:46 zinc, RBC 2023 024 [facility], [address], [address], [place], [place], [address], 4 16:25:51 vitamin B12, serum 2023 024 [facility], [address], [address], [place], [place], [address], 4 16:25:49 T3, free, serum or plasma 2023 024 [facility], [address], [address], [place], [address], 4 16:25:50 T4, free, serum 2023 024 [facility], [address], [address], [place], [place], [address], 4 16:25:48 CMP, serum or plasma 2023 024 [facility], [address], [address], [place], [place], [address], 4 16:25:46 ferritin, serum or plasma 2023 024 [facility], [address], [address], [place], [address], 4 16:25:48 unlisted lab - omegacheck( R) 2023 024 [facility], [address], [address], [place], [address], 4 16:25:52 thyroid panel, serum 2023 024 [facility], [address], [address], [place], [address], 4 16:25:45 CBC w/ auto diff 2023 024 [facility], [address], [address], [place], [address], 4 16:25:47 vitamin D, 25-hydroxy, total, serum 2021 022 [facility], [address], [address], [place], [address], 3 05:01:12 carnitine, free+total+ esters, serum 2021 022 [facility], [address], [address], [place], [address], 3 05:01:12 coenzyme Q10, total, serum or plasma 2021 022 [facility], [address], [address], [place], [address], 3 05:01:11 TSH, serum or plasma 2021 022 [facility] [address], [address], [place], [address], 3 05:01:12 magnesium, RBC 2021 022 [facility], [address], [address], [place], [address], 3 05:01:11 zinc, RBC 2021 022 [facility], [address], [address], [place], [address], 3 05:01:12 vitamin B12, serum 2021 022 [facility], [address], [address], [place], [address], 3 05:01:12 pregnenolon e, serum 2021 022 [facility], [address], [address], [place], [address], 3 05:01:12 dhea-sulfat e, serum 2021 022 [facility], [address], [address], [place], [address], 3 05:01:12 T3, free, serum or plasma 2021 022 [facility], [address], [address], [place], [address], 3 05:01:11 T4, free, serum 2021 [facility], [address], [address], [place], [address], 3 05:01:12 CBC 2021 [facility], [address], [address], [place], [address], 3 05:01:11 CMP, serum or plasma 2021 [facility], [address], [address], [place], [address], 3 05:01:11 ferritin, serum or plasma 2021 [facility], [address], [address], [place], [address], 3 05:01:11 grace sp igg+igm+iga Ab, serum 2021 [facility], [address], [address], [place], [address], 3 05:01:11 homocystein e, moles/volum e, serum 2021 [facility], [address], [address], [place], [address], 3 05:01:12 gamma-gluta myl transferase (ggt), serum 2021 [facility], [address], [address], [place], [address], 3 05:01:11 HbA1c (hemoglobin A1c), blood 2021 [facility], [address], [address], [place], [address], 19:47:37 unlisted lab - omegacheck( R) 2021 [facility], [address], [address], [place], [address], 19:47:30 thyroid panel, serum 2021 [facility], [address], [address], [place], [address], 19:47:29 testosteron e, free + total, serum 2021 [facility], [address], [address], [place], [address], 19:47:38 unlisted lab - cardio iq(R) insulin resistance panel with score 2021 [facility], [address], [address], [place], [address], 08:57:21 CRP, high sensitivity , serum or plasma 2021 [facility] [place] [facility], [address], [address], [place], [address], 19:47:25 lipid panel, serum 2021 [facility] [place] [facility], [address], [address], [place], [address], 19:47:34 Referral cardiologis t referral 2023 024 [facility], [address], [place], [address], 4 05:01:29 chiropracto r referral 2023 024 AN[facility] Not available 4 05:01:29 Procedures None recorded. Surgeries None recorded. Imaging None recorded. Medication Orders None recorded. Patient TargetsNo targets recorded. Patient Instructions Encounter Date Encounter Id Patient Instructions Last Modified By Organization Details Last Modified Time 05/25/2022 [id number] Increase vagal response/ relaxation response : 10 min a day of yoga, or tapping or mediation. Try to make it a habit- routine, practice every day at the same time. ( see info below) Continue exercising. -FASTING Lab visit at [facility]: (Covered by insurance usually, but deductible may apply) Stop your supplements for 4 days before the testing ( you may continue prescription medications) Fast (no food, only water) from 8 pm the night before. At home, do these kits and send directly to companies: -Food sensitivity panel - send us a copy ASI Tap saliva testing ($80) -Lyme test: [facility] ( $590) - provoked with A-L complex or [facility] ( $1500) in office. -Glutathione 4 sprays twice a day for 7 days and then do: [place] Mycotoxins ($300) -GI Effects stool testing ($179-$400 depending on insurance). or DD stool ambrose ( $290 ) Phase II: Heavy Metals testing ($174). DMSA capsules from [facility] required for Heavy Metals test. These can be picked up or delivered. While waiting for your follow up visit: Meet with our hotel manager. Follow up visit 4 weeks after lab work. MINDFULNESS MEDITATION / YOGA/ Tapping. Heart focus breathing / quick coherence [employer] Inner Balance device- Heart Math yoga [email or web address]---- tapping [email or web address] ( whole body tapping/ brain and body) --- Meditations [email or web address] ( Soften Sooth and Allow)--- Apps: Insight timer, Calm, Head space. Not available 05/25/2022 14:33:32 10/18/2023 [id number] Dear Gillian, It was so wonderful to meet you today! Please see our visit summary below. We want to make sure your pillars of health are solid, as this will help your body achieve your health goals and optimize your sense of wellness. Our plan is: 1.) Physical: Continue your amazing job with exercise! 2.) Chemical: Please see our plan below. 3.) Emotional: Give yoursel a huge hug - you are amazing. Continue your prescriptions as prescribed. FASTING lab visit at [facility]: (deductible or co-insurance may apply). Please make an appointment at [email or web address] These lab tests will get us a basic picture of what s currently happening in your body. Please stop your supplements three days before the test! MDL Lyme test: ($200+ (you will need to pay co-pay/deductible/ co-insurance): This is a blood test that is drawn in the office. I will send over the referral to your cardiolgist! I will also send a referral to your chiropractor. Please schedule a follow up appointment in 4-6 weeks for 45 minutes so we can review the results and continue the next steps of our journey! With gratitude, Aminata Cordero [facility] [email or web address] Not available 10/18/2023 15:28:08 Educated the patient on the treatment options and the diagnosis. Discussed the risks and the benefits of the treatment plan. Discussed alternative treatment options. Discussed the side effects of the medications and herbal preparations initiated at today s exam. Discussed the potential meterman complications with treatment. Appropriate follow up and red flag signs and symptoms discussed. Discussed the importance of establishing a relationship with a specialist. Discussed dangers of and treatment of this condition (if applicable). Patient elects to start treatment. Discussed with the patient that all health optimization treatment is voluntary in nature and not medically needed unless stated elsewhere. Vitamin and nutritional counseling performed. Encouraged to continue routine care with PCP and/or specialists. Discussed treatment modalities that are not FDA approved for given indication unless started elsewhere. [email or web address] Not available 10/17/2023 15:40:30 11/21/2023 [id number] Dear Gillian, It was so wonderful to meet you today! Please see our visit summary below. We want to make sure your pillars of health are solid, as this will help your body achieve your health goals and optimize your sense of wellness. Our plan is: 1.) Physical: Continue your amazing job with exercise! 2.) Chemical: Please see our plan below. 3.) Emotional: Keep up the hard work! Start Estrobal 1 tablet twice a day. Pending: FASTING lab visit at [facility]: (deductible or co-insurance may apply). Please make an appointment at [email or web address] These lab tests will get us a basic picture of what s currently happening in your body. Please stop your supplements three days before the test! Ivy, please re-fax cardiology referral. Please schedule a follow up appointment in 6-8 weeks for 30 minutes. With gratitude, Aminata Cordero [facility] [email or web address] Not available 11/21/2023 10:02:30 Educated the patient on the treatment options and the diagnosis. Discussed the risks and the benefits of the treatment plan. Discussed alternative treatment options. Discussed the side effects of the medications and herbal preparations initiated at today s exam. Discussed the potential senior living complications with treatment. Appropriate follow up and red flag signs and symptoms discussed. Discussed the importance of establishing a relationship with a specialist. Discussed dangers of and treatment of this condition (if applicable). Patient elects to start treatment. Discussed with the patient that all health optimization treatment is voluntary in nature and not medically needed unless stated elsewhere. Vitamin and nutritional counseling performed. Encouraged to continue routine care with PCP and/or specialists. Discussed treatment modalities that are not FDA approved for given indication unless started elsewhere. [email or web address] Not available 11/21/2023 06:13:20 Reason for Referral Math Specialist Referral for Ch est pain Referring Physician: Aminata Cordero, Family Medicine, null Encounter Date: 10/18/2023 Chiropractor Referral for Thelma int pain Referring Physician: Aminata Cordero Family Medicine, null Encounter Date: 10/18/2023 Results Created Date Observation Date Name Description Value Unit Range Abnormal Flag Note LastModifiedBy Organization Detail LastModifiedTime 11/02/19 24 11/21/2023 THYRO ID PEROX IDASE AND THYRO GLOBU YAIR ANTIB ODIES thyroglobuli n antibodies <1 IU/mL < or = 1 normal Not Available [facility] - Manual Order Only [address], [place], [address], 11/21/2023 16:25:45 11/02/19 24 11/21/2023 THYRO ID PEROX IDASE AND THYRO GLOBU YAIR ANTIB ODIES thyroid peroxidase antibodies 1 IU/mL <9 normal Not Available [facility] [address], [place], [address], 11/21/2023 16:25:45 11/02/19 24 11/21/2023 COMPR EHENS YENI METAB OLIC PANEL glucose 84 mg/dL 65-99 normal Fasti ng refer ence inter kylie Not Available [facility] - Manual Order Only [address], [place], [address], 11/21/2023 16:25:46 11/02/19 24 11/21/2023 COMPR EHENS YENI METAB OLIC PANEL urea nitrogen (BUN) 21 mg/dL 7-25 normal Not Available [facility] - Manual Order Only [address], [place], [address], 11/21/2023 16:25:46 11/02/19 24 11/21/2023 COMPR EHENS YENI METAB OLIC PANEL creatinine 0.57 mg/dL 0.50-0 .96 normal Not Available [facility] [address], [place], [address], 11/21/2023 16:25:46 11/02/19 24 11/21/2023 COMPR EHENS YENI METAB OLIC PANEL eGFR 133 mL/mi n/1.7 3m2 > or = 60 normal Not Available [facility] - Manual Order Only [address], [place], [address], 11/21/2023 16:25:46 11/02/19 24 11/21/2023 COMPR EHENS YENI METAB OLIC PANEL BUN/creatini ne ratio SEE NOTE: (calc ) 6-22 Not Repor kike: BUN and Creat inine are withi n refer ence range . Not Available [facility] - Manual Order Only [address], [place], [address], 11/21/2023 16:25:46 11/02/19 24 11/21/2023 COMPR EHENS YENI METAB OLIC PANEL sodium 139 mmol/ L 135-14 6 normal Not Available [facility] - Manual Order Only [address], [place], [address], 11/21/2023 16:25:46 11/02/19 24 11/21/2023 COMPR EHENS YENI METAB OLIC PANEL potassium 4.1 mmol/ L 3.5-5. 3 normal Not Available [facility] - Manual Order Only [address], [place], [address], 11/21/2023 16:25:46 11/02/19 24 11/21/2023 COMPR EHENS YENI METAB OLIC PANEL chloride 105 mmol/ L 98-110 normal Not Available [facility] - Manual Order Only [address], [place], [address], 11/21/2023 16:25:46 11/02/19 24 11/21/2023 COMPR EHENS YENI METAB OLIC PANEL carbon dioxide 26 mmol/ L 20-32 normal Not Available [facility] - Manual Order Only [address], [place], [address], 11/21/2023 16:25:46 11/02/19 24 11/21/2023 COMPR EHENS YENI METAB OLIC PANEL calcium 9.3 mg/dL 8.6-10 .2 normal Not Available [facility] - Manual Order Only [address], [place], [address], 11/21/2023 16:25:46 11/02/19 24 11/21/2023 COMPR EHENS YENI METAB OLIC PANEL protein, total 7.5 g/dL 6.1-8. [address] [facility] - Manual Order Only [address], [place], [address], 11/21/2023 16:25:46 11/02/19 24 11/21/2023 COMPR EHENS YENI METAB OLIC PANEL albumin 4.5 g/dL 3.6-5. [address] [facility] - Manual Order Only [address], [place], [address], 11/21/2023 16:25:46 11/02/19 24 11/21/2023 COMPR EHENS YENI METAB OLIC PANEL globulin 3.0 g/dL_ (calc ) 1.9-3. [address] [facility] - Manual Order Only [address], [place], [address], 11/21/2023 16:25:46 11/02/19 24 11/21/2023 COMPR EHENS YENI METAB OLIC PANEL albumin/glob ulin ratio 1.5 (calc ) 1.0-2. [address] [facility] - Manual Order Only [address], [place], [address], 11/21/2023 16:25:46 11/02/19 24 11/21/2023 COMPR EHENS YENI METAB OLIC PANEL bilirubin, total 0.3 mg/dL 0.2-1. [address] [facility] - Manual Order Only [address], [place], [address], 11/21/2023 16:25:46 11/02/19 24 11/21/2023 COMPR EHENS YENI METAB OLIC PANEL alkaline phosphatase 85 U/L 31-125 normal Not Available [facility] - Manual Order Only [address], [place], [address], 11/21/2023 16:25:46 11/02/19 24 11/21/2023 COMPR EHENS YENI METAB OLIC PANEL AST 22 U/L 10-[address] [facility] - Manual Order Only [address], [place], [address], 11/21/2023 16:25:46 11/02/19 24 11/21/2023 COMPR EHENS YENI METAB OLIC PANEL ALT 29 U/L 6-[address] [facility] - Manual Order Only [address], [place], [address], 11/21/2023 16:25:46 11/02/19 24 11/21/2023 MAGNE SIUM, RBC magnesium, RBC 5.6 mg/dL 4.0-6. 4 This test was devkalli herrera and its tray tical perfo rmanc e [place] cteri stics have been deter mined by [facility] [place] [place]. It has not been clear ed or appro marsha by the U.S. Food and Drug Admin istra tion. This assay has been valid ated pursu ant to the CLIA regul ation s and is used for clini amber purpo ses. Not Available [facility] - Manual Order Only [address], [place], [address], 11/21/2023 16:25:46 11/02/19 24 11/21/2023 CBC (INCL UDES DIFF/ PLT) white blood cell count 5.4 thous and/u L 3.8-10 .[address] [facility] - Manual Order Only [address], [place], [address], 11/21/2023 16:25:47 11/02/19 24 11/21/2023 CBC (INCL UDES DIFF/ PLT) red blood cell count 4.38 mai on/uL 3.80-5 .[address] [facility] - Manual Order Only [address], [place], [address], 11/21/2023 16:25:47 11/02/19 24 11/21/2023 CBC (INCL UDES DIFF/ PLT) hemoglobin 13.1 g/dL 11.7-1 5.[address] [facility] - Manual Order Only [address], [place], [address], 11/21/2023 16:25:47 11/02/19 24 11/21/2023 CBC (INCL UDES DIFF/ PLT) hematocrit 38.7 % 35.0-4 [address] [facility] - Manual Order Only [address], [place], [address], 11/21/2023 16:25:47 11/02/19 24 11/21/2023 CBC (INCL UDES DIFF/ PLT) MCV 88.4 fL 80.0-1 [address] [facility] - Manual Order Only [address], [place], [address], 11/21/2023 16:25:47 11/02/19 24 11/21/2023 CBC (INCL UDES DIFF/ PLT) MCH 29.9 pg 27.0-3 3[address] [facility] - Manual Order Only [address], [place], [address], 11/21/2023 16:25:47 11/02/19 24 11/21/2023 CBC (INCL UDES DIFF/ PLT) MCHC 33.9 g/dL 32.0-3 [address] [facility] - Manual Order Only [address], [place], [address], 11/21/2023 16:25:47 11/02/19 24 11/21/2023 CBC (INCL UDES DIFF/ PLT) RDW 12.0 % 11.0-1 [address] [facility] - Manual Order Only [address], [place], [address], 11/21/2023 16:25:47 11/02/19 24 11/21/2023 CBC (INCL UDES DIFF/ PLT) platelet count 249 thous and/u L 140-40 [address] [facility] - Manual Order Only [address], [place], [address], 11/21/2023 16:25:47 11/02/19 24 11/21/2023 CBC (INCL UDES DIFF/ PLT) MPV 10.2 fL 7.5-12 .[address] [facility] - Manual Order Only [address], [place], [address], 11/21/2023 16:25:47 11/02/19 24 11/21/2023 CBC (INCL UDES DIFF/ PLT) absolute neutrophils 3143 cells /uL 1500-[address] [facility] - Manual Order Only [address], [place], [address], 11/21/2023 16:25:47 11/02/19 24 11/21/2023 CBC (INCL UDES DIFF/ PLT) absolute lymphocytes 1588 cells /uL 850-39 [address] [facility] - Manual Order Only [address], [place], [address], 11/21/2023 16:25:47 11/02/19 24 11/21/2023 CBC (INCL UDES DIFF/ PLT) absolute monocytes 524 cells /uL 200-95 [address] [facility] - Manual Order Only [address], [place], [address], 11/21/2023 16:25:47 11/02/19 24 11/21/2023 CBC (INCL UDES DIFF/ PLT) absolute eosinophils 108 cells /uL 15-500 normal Not Available [facility] - Manual Order Only [address], [place], [address], 11/21/2023 16:25:47 11/02/19 24 11/21/2023 CBC (INCL UDES DIFF/ PLT) absolute basophils 38 cells /uL 0-200 normal Not Available [facility] - Manual Order Only [address], [place], [address], 11/21/2023 16:25:47 11/02/19 24 11/21/2023 CBC (INCL UDES DIFF/ PLT) neutrophils 58.2 % normal Not Available [facility] - Manual Order Only [address], [place], [address], 11/21/2023 16:25:47 11/02/19 24 11/21/2023 CBC (INCL UDES DIFF/ PLT) lymphocytes 29.4 % normal Not Available [facility] - Manual Order Only [address], [place], [address], 11/21/2023 16:25:47 11/02/19 24 11/21/2023 CBC (INCL UDES DIFF/ PLT) monocytes 9.7 % normal Not Available [facility] - Manual Order Only [address], [place], [address], 11/21/2023 16:25:47 11/02/19 24 11/21/2023 CBC (INCL UDES DIFF/ PLT) eosinophils 2.0 % normal Not Available [facility] - Manual Order Only [address], [place], [address], 11/21/2023 16:25:47 11/02/19 24 11/21/2023 CBC (INCL UDES DIFF/ PLT) basophils 0.7 % normal Not Available [facility] - Manual Order Only [address], [place], [address], 11/21/2023 16:25:47 11/02/19 24 11/21/2023 MAREK TIN ferritin 20 NG/mL 16-[address] [facility] - Manual Order Only [address], [place], [address], 11/21/2023 16:25:47 11/02/19 24 11/21/2023 T4, FREE T4, free 1.2 NG/dL 0.8-1. [address] [facility] - Manual Order Only [address], [place], [address], 11/21/2023 16:25:48 11/02/19 24 11/21/2023 TSH TSH 1.54 mIU/L normal Refer ence Range > or = 20 Years 0.40- 4.50 Pregn paresh Range s First trime ster 0.26- 2.66 Secon d trime ster 0.55- 2.73 Third trime ster 0.43- 2.[address] [facility] - Manual Order Only [address], [place], [address], 11/21/2023 16:25:49 11/02/19 24 11/21/2023 VITAM IN B12 vitamin B12 449 pg/mL 200-11 [address] [facility] - Manual Order Only [address], [place], [address], 11/21/2023 16:25:49 11/02/19 24 11/21/2023 T3, FREE T3, free 4.0 pg/mL 2.3-4. [address] [facility] - Manual Order Only [address], [place], [address], 11/21/2023 16:25:50 11/02/19 24 11/21/2023 VITAM IN D,25- [place],TO NOEL,I A vitamin D,25-oh,tota l,ia 26 NG/mL 30-100 low Vitam in D Statu s 25-OH Vitam in D: Defic iency : <20 ng/mL Insuf ficie ncy: 20 - 29 ng/mL Optim al: > or = 30 ng/mL For 25-OH Vitam in D testi ng on patie nts on D2-pena pplem entat ion and patie nts for whom quant itati on of D2 and D3 fract ions is requi red, the [facility] Assur eD(TM ) 25-OH VIT D, (D2,D 3), LC/MS /MS is recom migdalia d: order code 94706 (kevin ents >2yrs ). See Note 1 Note 1 For addit ional infor claudia dobbins e refer to http: //[facility] josé luis Garcia stDia gnost ics.c om/fa q/FAQ 199 (This link is being provi ded for infor erasmo moreau/ educa master l purpo ses only. ) Not Available [facility] - Manual Order Only [address], [place], [address], 11/21/2023 16:25:50 11/02/19 24 11/21/2023 ZINC, RBC zinc, RBC 11.3 mg/L 9.0-14 .7 (Note ) This test was devel oped and its tray tical perfo rmanc e [place] cteri stics have been deter mined by [facility]. It has not been clear ed or appro marsha by the FDA. This assay has been valid ated pursu ant to the CLIA regul ation s and is used for clini amber purpo ses. MDF med fusio n [address] [facility] [address] [place] [address] [phone] Devendra sweeney MD Not Available [facility] - Manual Order Only [address], [place], [address], 11/21/2023 16:25:51 11/02/19 24 11/21/2023 OMEGA CHECK (R) epa+dpa+dha 3.0 %_by_ wt >5.4 low This test was devel oped and its tray tical perfo rmanc e [place] cteri stics have been deter mined by [facility] Cardi ometa emmanuelle weaver of Cristy dominguez at [facility]. It has not been clear ed or appro marsha by the U.S. Food and Drug Admin istra tion. This assay has been valid ated pursu ant to the CLIA regul ation s and is used for clini amber purpo ses. Incre asing blood level s of long- chain n-3 fatty acids are assoc iated with a lower risk of sudde n cardi ac (1). Based on the top (75th perce ntile ) and botto m (25th perce ntile ) quart angella of the [facility] refer ence popul ation , the follo wing relat yeni risk categ ories were estab lishe d for [place] Check : A cut-o ff of >=5.5 % by wt defin es a popul ation at optim al relat yeni risk, 3.8-5 .4% by wt defin es a popul ation at moder ate relat yeni risk, and <=3.7 % by wt defin es a popul ation at high relat yeni risk of sudde n cardi ac . The total ity of the scien tific evide nce demon strat es that when consu mptio n of fish oils is limit ed to 3 g/day or less of EPA and DHA, there is no signi fican t risk for incre ased bleed ing time beyon d the naseem l range . A daily dosag e of 1 gram of EPA and DHA lower s the circu latin g trigl yceri tova by about 7-10% withi n 2 to 3 weeks . (Refe rence : 1-Alb ert et al. NEJ. 2002; 346: 1113- 1118) . Not Available [facility] - Manual Order Only [address] [facility] [address], [place], [address], 11/21/2023 16:25:52 11/02/19 24 11/21/2023 OMEGA CHECK (R) arachidonic acid/epa ratio 31.0 3.7-[address] [facility] - Manual Order Only [address], [place], [address], 11/21/2023 16:25:52 11/02/19 24 11/21/2023 OMEGA CHECK (R) omega-6/omeg a-3 ratio 13.4 3.7-[address] [facility] - Manual Order Only [address], [place], [address], 11/21/2023 16:25:52 11/02/19 24 11/21/2023 OMEGA CHECK (R) omega-3 total 3.0 %_by_ wt Not Available [facility] - Manual Order Only [address], [place], [address], 11/21/2023 16:25:52 11/02/19 24 11/21/2023 OMEGA CHECK (R) epa 0.5 %_by_ wt 0.2-2. [address] [facility] - Manual Order Only [address], [place], [address], 11/21/2023 16:25:52 11/02/19 24 11/21/2023 OMEGA CHECK (R) dpa 1.0 %_by_ wt 0.8-1. [address] [facility] - Manual Order Only [address] [facility] [address], [place], [address], 11/21/2023 16:25:52 11/02/19 24 11/21/2023 OMEGA CHECK (R) dha 1.6 %_by_ wt 1.4-5. [address] [facility] - Manual Order Only [address] [facility] [address], [place], [address], 11/21/2023 16:25:52 11/02/19 24 11/21/2023 OMEGA CHECK (R) omega-6 total 41.0 %_by_ wt [facility] measu res a numbe r of omega -6 fatty acids with AA and LA being the two most abund ant forms repor kike. Not Available [facility] - Manual Order Only [address], [place], [address], 11/21/2023 16:25:52 11/02/19 24 11/21/2023 OMEGA CHECK (R) arachidonic acid 14.0 %_by_ wt 8.6-[address] [facility] - Manual Order Only [address], [place], [address], 11/21/2023 16:25:52 11/02/19 24 11/21/2023 OMEGA CHECK (R) linoleic acid 23.0 %_by_ wt 18.6-[address] [facility] - Manual Order Only [address], [place], [address], 11/21/2023 16:25:52 11/02/19 24 11/21/2023 COENZ YME Q10 coenzyme Q10 0.59 ug/mL >0.35 This test was kathryn herrera and its tray tical perfo rmanc e michoacano cteri stics have been deter mined by Ever dominguez at [facility]. It has not been clear ed or appro marsha by the U.S. Food and Drug Admin istra tion. This assay has been valid ated pursu ant to the CLIA regul ation s and is used for clini amber purpo ses. Coenz yme Q10 is a partida compo nent of the elect varun trans port chain , which creat es zackary y. It is also invol marsha in antio xidan t pathw ays, inclu ding the regen erati on of the prote ctive funct ions of Vitam in E. CoQ10 may inter act with the antic oagul ant (bloo d thinn er) warfa rin and the diabe ambrose drug insul in, and it may not be burak tible with some types of cance r treat ment. For more infor erasmo mcbride, visit https ://merari w.ncc ih.ni h.gov /heal th/co enzym e-q10 /. Not Available [facility] - Manual Order Only [address], [place], [address], 11/21/2023 16:25:52 Result Notes None recorded. Problems Name Problem SNOMED Code Status Onset Date Resolution Date Notes Provider Name and Address Organization Details Recorded Time Fatigue 39109802 Active 2021 Aminata Cordero NP [address] [place] [address], [facility] [address], [place], [address] , [place] - [facility] 3 08:56:07 Headache 59049011 Active 2021 Aminata Cordero NP [address] [place] [address], [facility] [address], [place], [address] , [place] [facility] 3 08:56:09 Nausea 701810053 Active 2021 Aminata Cordero NP [address] [place] [address], [facility] [address], [place], [address] , [place] [facility] 3 08:56:05 Joint pain 68633031 Active 2023 Aminata Cordero NP [address] [place] [address], [facility] [address], [place], [address] , [place] [facility] 4 15:13:22 Family history of premature coronary heart disease 845368020 Active 2023 Aminata Cordero NP [address] [place] [address], [place] [address], [place], [address] , [place] [facility] 4 15:13:43 Chest pain 59513313 Active 2023 Aminata Cordero NP [address] [place] [address], [place] [address], [place], [address] , [place] [facility] 4 15:13:49 Venous varices 179752733 Active 2023 Aminata Cordero NP [address] [place] [address], [facility] [address], [place], [address] , [place] [facility] 4 15:17:24 Vitamin D deficiency 03132786 Active 2023 Aminata Cordero NP [address] [place] [address], [address], [place], [address] , [place] [facility] 4 15:27:33 Generalized abdominal pain 299867442 Active 2021 Aminata Cordero NP [address] [place] [address], [address], [place], [address] , [place] [facility] 4 10:00:01 Reduced visual acuity 83294143 Active 2013 Aminata Cordero NP [address] [place] [address], [address], [place], [address] , [place] [facility] 4 10:00:01 Acute tonsillitis 11299769 Active 2018 Aminata Cordero NP [address] [place] [address], [address], [place], [address] , [place] [facility] 4 10:00:01 Patient encounter status 518428576 Active 2013 Aminata Cordero NP [address] [place] [address], [address], [place], [address] , [place] [facility] 4 10:00:01 Allergic rhinitis 22274886 Active 2011 Aminata Cordero NP [address] [place] [address], [address], [place], [address] , [place] [facility] 4 10:00:01 Benign neoplasm of soft tissue 71404526 Active 2013 Aminata Cordero NP [address] [facility], [address], [place], [address] , [place] [facility] 4 10:00:01 Problem Notes None recorded. Procedures Surgical History Date Name Laterality Status Provider Name and Address Organization Details Recorded Time 3 Date of Last Pap Smear completed Aminata Cordero NP [address] [facility], [address], [place], [address], [place] [facility] 10/18/2023 15:08:22 0 Oral surgery procedure completed Aminata Cordero NP [address] [facility], [address], [place], [address], [facility] - [facility] 10/18/2023 15:11:24 Imaging Results None recorded. Procedure Notes None recorded. Medical Equipment None Reported. Allergies Allergen ID Allergen Name Allergen Category Reaction Reaction Severity Criticality Documentation Date Start Date Code Code System Note Provider Name and Address Organization Details Recorded Time 6263 amoxicill in medicatio n rash Not available Not available 05/25/2022 723 RxNorm Chelsea [place], [place] - [facility] 2 14:14:28 6264 doxycycli ne Not available nausea Not available Not available 05/25/2022 3640 RxNorm Chelsea [place], [place] - [facility] 2 14:14:51 8760 Product containin g penicilli n (product) medicatio n nausea Not available Not available 11/21/20232021 91557 8001 SNOMED Aminata Cordero NP [address] [facility], [address], [place], [address], [facility] 4 10:00:08 8761 sulfameth oxazole medicatio n nausea Not available Not available 11/21/20232021 89779 Jocelyn Cordero NP [address] [facility], [address], [place], [address], [facility] - [facility] 4 10:00:08 8762 cow milk allergeni c extract food,medi cation nausea Not available Not available 11/21/20232021 94892 5 Jocelyn Cordero NP [address] [facility], [address], [place], [address], [facility] - [facility] 4 10:00:08 8763 wheat preparati on food,medi cation nausea Not available Not available 11/21/20232021 94292 52 RxMichael Cordero NP [address] [place] [address], [address], [place], [address] , [facility] - [facility] 4 10:00:08 Medications Name Sig Start Date Stop Date Status Note LastModified by Organization Details LastModified Time prednisone 10 mg tablet TAKE 4 TABLETS BY MOUTH DAILY FOR 5 DAYS. 10/18 completed Not Available Not Available Not Available Apri 0.15 mg-0.03 mg tablet TAKE 1 TABLET BY MOUTH EVERY DAY 10/18 completed Not Available Not Available Not Available azithromyci n 250 mg tablet TAKE 2 TABLETS BY MOUTH TODAY, THEN TAKE 1 TABLET DAILY FOR 4 DAYS 10/18 completed Not Available Not Available Not Available fluconazole 150 mg tablet 10/18 completed Not Available Not Available Not Available metronidazo le 500 mg tablet TAKE 1 TABLET BY MOUTH EVERY 12 HOURS FOR 7 DAYS 05/25 completed Not Available Not Available Not Available amoxicillin 875 mg tablet TAKE 1 TABLET BY MOUTH TWICE A DAY 10/18 completed Not Available Not Available Not Available benzonatate 100 mg capsule TAKE 1 CAPSULE BY MOUTH THREE TIMES A DAY NEEDED FOR COUGH 10/18 completed Not Available Not Available Not Available ibuprofen 600 mg tablet TAKE ONE TABLET BY MOUTH EVERY 5 TO 8 HOURS WITH FOOD 05/25 completed Not Available Not Available Not Available albuterol sulfate HFA 90 mcg/actuati on aerosol inhaler INHALE 2 PUFFS INTO THE LUNGS EVERY 6 HOURS NEEDED FOR WHEEZE 10/18 completed Not Available Not Available Not Available ondansetron 4 mg disintegrat ing tablet DISSOLVE 1-2 TABLET IN MOUTH THREE TIMES A DAY NEEDED VOMITING 10/18 completed Not Available Not Available Not Available azithromyci n 500 mg tablet TAKE 1 TABLET (500 MG TOTAL) BY MOUTH ONE DOSE 10/18 completed Not Available Not Available Not Available 10/06 (21) 1 mg-20 mcg tablet TAKE 1 TABLET BY MOUTH EVERY DAY 10/18 completed Not Available Not Available Not Available (21) 1.5 mg-30 mcg tablet TAKE 1 TABLET BY MOUTH EVERY DAY 05/25 completed Not Available Not Available Not Available 10/06 (28) 1 mg-20 mcg (21)/75 mg (7) tablet TAKE 1 TABLET BY MOUTH EVERY DAY 10/18 completed Not Available Not Available Not Available .530 (28) 1.5 mg-30 mcg (21)/75 mg (7) tablet TAKE 1 TABLET BY MOUTH EVERY DAY 10/18 completed Not Available Not Available Not Available Maday Caballero [facility] spacer INHALE 1 INHALATIO N INTO THE LUNGS NEEDED. 10/18 completed Not Available Not Available Not Available Vitals Date Recorded Body height Body mass index (BMI) Percentile per age and sex Body mass index (BMI) Body weight Systolic blood pressure Diastolic blood pressure Provider Name and Address Organization Details Last Updated DateTime 180.34 cm 7 % 18.1 kg/m2 57896.0 1 g 100 mm[Hg] 60 mm[Hg] Chelsea Lavena [facility] 14:14:12 Date Recorded Body weight Body mass index (BMI) Body height Provider Name and Address Organization Details Last Updated DateTime 10/18/2023 81548.01 g 18.1 kg/m2 180.34 cm Aminata Cordero, ARTHUR [address] [place] [address], [address], [place], [address], [place] - [facility] 10/18/2023 15:06:07 Social History Question Answer Notes LastModified by Organizat ion Details LastModified Time Tobacco Smoking Status Never Smoker Chelsea [facility], [facility] 05/25/2022 14:17:45 What Is Your Level Of Alcohol Consumption? Occasional Once A Month Information not available 10/18/2023 What Is Your Level Of Caffeine Consumption? 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 Single [email or web address] Information not available 10/18/2023 Sex: Unknown Functional Status None recorded. Mental Status None recorded. Family History Relationship Description Onset Age of this Age Resolved Age Notes LastModified by Organization Details LastModified Time Mother Irritable bowel syndrome [email or web address] Not available 2021 14:16:25 Mother Hypothyroidi sm [email or web address] Not available 2021 14:16:40 Maternal Grandmother Alzheimer's disease [email or web address] Not available 2021 14:16:55 Paternal Grandmother Malignant neoplasm of skin [email or web address] Not available 2021 14:17:15 Notes:Maternal great aunt: A lzheimers Maternal grandfather: [place] in 50s, HTN Maternal grandmother: [place] in 60s, HTN Father: Alcoholism Medical History No medical history recorded. Gynecological History Statement/Question Response Date of Last Pap Smear 09/17/2022 Obstetrics History GPAL:G 0 P 0 0 0 0 Immunizations Vaccine Type Date Status Note Provider Nam e and Address Organization Details Recorded Time Hib, unspecified formulation 2 marshall Cordero NP [address] [facility], [address], [place], [address], [place] - [facility] 11/21/2023 09:59:53 Hib, unspecified formulation 3 marshall Cordero NP [address] [facility], [address], [place], [address], [place] - [facility] 11/21/2023 09:59:53 Hib, unspecified formulation 2 marshall Cordero NP [address] [facility], [address], [place], [address], [place] [facility] 11/21/2023 09:59:53 Hib, unspecified formulation 2 marshall Cordero NP [address] [facility], [address], [place], [address], [place] [facility] 11/21/2023 09:59:53 HPV9 6 marshall Cordero NP [address] [facility], [address], [place], [address], [place] - [facility] 11/21/2023 09:59:53 HPV9 7 marshall Cordero NP [address] [facility], [address], [place], [address], [place] [facility] 11/21/2023 09:59:53 HPV9 6 completed Aminata Cordero NP [address] [facility], [address], [place], [address], [place] - [facility] 11/21/2023 09:59:53 MMR 7 completed Aminata Cordero NP [address] [facility], [address], [place], [address], [place] [facility] 11/21/2023 09:59:53 MMR 3 completed Aminata Cordero NP [address] [facility], [address], [place], [address], [place] [facility] 11/21/2023 09:59:53 meningococcal MPSV4 3 marshall Cordero NP [address] [facility], [address], [place], [address], [place] [facility] 11/21/2023 09:59:53 Td(adult) unspecified formulation 3 completed Aminata Cordero NP [address] [facility], [address], [place], [address], [place] [facility] 11/21/2023 09:59:53 Tdap 3 marshall Cordero NP [address] [facility], [address], [place], [address], [place] [facility] 11/21/2023 09:59:53 varicella 7 completed Aminata Cordero NP [address] [facility], [address], [place], [address], [place] [facility] 11/21/2023 09:59:53 varicella 3 marshall Cordero NP [address] [facility], [address], [place], [address], [place] [facility] 11/21/2023 09:59:53 DTP 6 completed Aminata Cordero NP [address] [facility], [address], [place], [address], [place] [facility] 11/21/2023 09:59:53 DTP 2 completed Aminata Cordero NP [address] [facility], [address], [place], [address], [place] [facility] 11/21/2023 09:59:53 DTP 3 completed Aminata Cordero NP [address] [facility], [address], [place], [address], [place] [facility] 11/21/2023 09:59:53 DTP 2 completed Aminata Cordero NP [address] [facility], [address], [place], [address], [place] [facility] 11/21/2023 09:59:53 DTP 2 marshall Cordero NP [address] [place] [address], [address], [place], [address], [place] [facility] 11/21/2023 09:59:53 Hep B, unspecified formulation 3 completed Aminata Cordero NP [address] [facility], [address], [place], [address], [place] [facility] 11/21/2023 09:59:53 Hep B, unspecified formulation 2 marshall Cordero NP [address] [place] [address], [address], [place], [address], [place] [facility] 11/21/2023 09:59:53 Hep B, unspecified formulation 2 marshall Cordero NP [address] [facility], [address], [place], [address], [place] [facility] 11/21/2023 09:59:53 pneumococcal, unspecified formulation 3 marshall Cordero NP [address] [facility], [address], [place], [address], [place] [facility] 11/21/2023 09:59:53 pneumococcal, unspecified formulation 2 completed Aminata Cordero NP [address], [address], [place], [address], [place] [facility] 11/21/2023 09:59:53 pneumococcal, unspecified formulation 2 completed Aminata Cordero NP [address], [address], [place], [address], [place] [facility] 11/21/2023 09:59:53 pneumococcal, unspecified formulation 2 completed Aminata Cordero NP [address], [address], [place], [address], [place] [facility] 11/21/2023 09:59:53 polio, unspecified formulation 3 completed Aminata Cordero NP [address], [address], [place], [address], [place] [facility] 11/21/2023 09:59:54 polio, unspecified formulation 7 completed Aminata Cordero NP [address], [address], [place], [address], [place] [facility] 11/21/2023 09:59:54 polio, unspecified formulation 2 marshall Cordero NP [address], [address], [place], [address], [place] [facility] 11/21/2023 09:59:54 polio, unspecified formulation 2 marshall Cordero NP [address], [address], [place], [address], [place] [facility] 11/21/2023 09:59:54 meningococcal MCV4P 9 marshall Cordero NP [address], [address], [place], [address], [place] [facility] 11/21/2023 09:59:54 Hep A, unspecified formulation 1 marshall Cordero NP [address], [address], [place], [address], [place] [facility] 11/21/2023 09:59:54 Hep A, unspecified formulation 2 completed Aminata Cordero NP [address] [facility], [address], [place], [address], [place] [facility] 11/21/2023 09:59:54 Past Encounters Encounter ID Performer Location Encounter Start Date Encounter Closed Date Diagnosis/Indication Diagnosis SNOMED-CT Code Diagnosis ICD10 Code Diagnosis Note [id number] Chelsea [facility] [address] [facility] [address] [place] [address] 05/25/2022 13:32:04 05/25/2022 14:36:47 Fatigue 11753866 R53.83 we will order labs Headache 10291442 R51.9 r/o lyme Nausea 096978500 R11.0 we will order labs [id number] Aminata Cordero NP [facility] [address] [place] [address] 10/18/2023 07:33:20 10/18/2023 15:35:08 Fatigue 04655792 R53.83 10/18/23: Will check labs and follow up. Joint pain 98065637 M25. 50 10/18/23: Will check labs and follow up. Chest pain 20626215 R07. 9 10/18/23: Will check labs and follow up. Vitamin D deficiency 347 29637 E55.9 10/18/23: Will check labs and follow up. [id number] Aminata Cordero NP [facility] [address] [facility] [facility] [address] [place] [address] 11/21/2023 07:43:09 11/21/2023 10:09:30 Fatigue 19509927 R53.83 11/20: Ongoing.10/18/23: Will check labs and follow up. Joint pain 93884442 M25. 50 11/20: Lyme negative. May have been exposed to mold at her mom's house. Doesn't want to test for it yet.10/18/23 : Will check labs and follow up. Chest pain 26613504 R07. 9 11/20: Pending cardiology referral.: Will check labs and follow up. Vitamin D deficiency 347 08644 E55.9 11/20: Pending labs. 4: Will check labs and follow up. Health Concerns Section Related Observation LastModified by Organization Detai ls LastModified Time None Recorded Concern Status LastModified by Organization Details LastModified Time None Recorded Advance Directives Directive None Recorded Payers Encounter Date Sequence Insurance Name Policy Number Policy Adam Covered Member ID Adam Member ID Guarantor Name 05/25/2022 1 [place] [facility] [place] [id number] Radha A Lentros [id number] Gillian Segars 10/18/2023 1 [place] [facility] [place] [id number] Rdaha A Lentros [id number] Gillian Segars 11/21/2023 1 [place] [facility] [place] [id number] Radha A Lentros [id number] Gillian Segars Notes Date Note Type Note Provider Name and Address Organization Details Recorded Time 2 text/html Gillian came to visit us today to establish care: Nausea*all the time , vomitingGF did not helpsx started 2 ys ago Headaches*Dizziness*a few month ago almost every day SOB *really easy - walking up the stairs. Hands*Swelling of the hands and could not move them as muchlast winger Brain fog* Knee pain :off and on Fatigue:*all the timetired when she wakes up Tinnitus *a lot - bilaterally. Red and tingly hands. 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 Relaxation activity:walking Nutrition:gluten free since September not a 100%trying to follow a healthy diet Chelsea richardson MA - [facility] 05/28/2022 19:46:59 4 text/html Current health concerns/goals:1.)Chest pain: Ongoing for 7 years. Wants to see a manager product support. Squeezing pain lasts 5 min to several hours. Nothing makes it better. Goes away on its own. Occasionally has left arm will go numb. Went to ED a few years ago and had a negative EKG.2.) Needs a referral to a chiropractor.3.) No lyme testing. Has waxing/waning joint pain and s/s of venous varices. Has a chiropractor for this.Sleep: Sleeps well.Energy/Fatigue: Always tired. Used to get dizziness. Gets OOB easily.Gut function/BMs: Better now that she's GF. Used to have chronic nausea.PMS symptoms/Periods: Regular since stopping OCP.Nutrition: GF, protein, clean overall.Physical activity: Works out 2-3X weekly, strength training. Going to start dance lessons.Relaxation: Listen to music, read books.Partnership: Single.Stressors: No stressors.Exposure to toxins/abx as a child/adult: Denies.Current supplements: Aminata Cordero NP [address] [place] [address], [address], [place], [address], [facility] - [facility] 10/18/2023 15:30:27 4 text/html The visit was conducted with the use of interactive audio and video telecommunications that permits real time communication between patient and provider. The patient provided verbal consent for a virtual visit and was contacted while at home. This call was conducted from the [facility] Office. This case was discussed with the supervising physician, Dr. Esteban Figueroa. 11/20:This is a 23 y/o female who presents for follow up.Changes since last visit: Things aren't bad . She has been intermittently nauseous all week.Did she go for labs:Cardiology referral for chest pain:Needs to reach out to see if they got the referral.Chiropractor referral:Sees every two weeks. Going well, helping with spine. HJoint pain:Her joint pain in wrists/elbows/knees 0-3/10 on a daily.Menses:Lasted 1 week, felt nauseous during the whole week.Discussed lyme results: Negative Current health concerns/goals:1.)Chest pain: Ongoing for 7 years. Wants to see a manager product support. Squeezing pain lasts 5 min to several hours. Nothing makes it better. Goes away on its own. Occasionally has left arm will go numb. Went to ED a few years ago and had a negative EKG.2.) Needs a referral to a chiropractor.3.) No lyme testing. Has waxing/waning joint pain and s/s of venous varices. Has a chiropractor for this.Sleep: Sleeps well.Energy/Fatigue: Always tired. Used to get dizziness. Gets OOB easily.Gut function/BMs: Better now that she's GF. Used to have chronic nausea.PMS symptoms/Periods: Regular since stopping OCP.Nutrition: GF, protein, clean overall.Physical activity: Works out 2-3X weekly, strength training. Going to start dance lessons.Relaxation: Listen to music, read books.Partnership: Single.Stressors: No stressors.Exposure to toxins/abx as a child/adult: Denies.Current supplements: Aminata Cordero NP [address], [address], [place], [address], [facility] - [facility] 11/21/2023 10:06:57 OBGyn Episode No OBEpisode recorded.
--- OUTSIDE RECORDS SUMMARY | 2024-11-29 14:30 | XMS_ITS | Clinical Summary ---
Author Organization [facility] Facility Address [address] [place] [address] Care Team Providers Care Construction Supervisor Name Role Phone Ivette Odonnell MD Primary Care Provider Unavai lable Allergies Active Allergy Reactions Criticality Noted Date Comments Milk (Cow) Nausea 10/11/2021 Penicillins Nausea 10/11/2021 Sulfamethoxazole Nausea 10/11/2021 Wheat Nausea 10/11/2021 Medications 10/06 1-20 MG-MCG per tablet Take 1 tablet by mouth 1 (one) time each day 11/04/2021 Active Active Problems Problem Noted Date Diagnosed Date Bilateral pain of joint of hands 11/29/2021 Abnormality of globulin 11/29/2021 Elevated C-reactive protein (CRP) 11/29/2021 Pleurisy 11/29/2021 Isolated proteinuria 11/29/2021 Family History Medical History Relation Comments Hypertension Maternal Grandfather Severiano's thyroiditis Maternal Grandmother Hypertension Mother Relation Status Comments Maternal Grandfather Maternal Grandmother Mother Social History Tobacco Use Types Packs/Day Years Used Date Smoking Tobacco: Never Smokeless Tobacco: Never Comments Unknown Sex and Gender Information Value Date Recorded Sex Assigned at Not on file Legal Sex Female 6:20 PM EST Gender Identity Not on file Sexual Orientation Not on file Last Filed Vital Signs Vital Sign Reading Time Taken Comments Blood Pressure 118/78 03/11/2022 4:05 PM EDT Pulse 60 03/11/2022 4:05 PM EDT Temperature - - Respiratory Rate - - Oxygen Saturation - - Inhaled Oxygen Concentration - - Weight - - Height - - Body Mass Index - - Plan of Treatment Health Maintenance Due Date Last Done Comments Influenza Vaccine (#1) 2024 Hepatitis B Vaccine Completed 2002, 2002, 2002 Pneumococcal Vaccine: Pediatrics (0 to 5 Years) and At-Risk Patients (6 to 64 Years) Aged Out 01/20/2003, 2002, 2002, Additional history exists No longer eligible based on patient's age to complete this topic Insurance [facility] Care Teams Construction Supervisor Relationship Specialty Start Date End Date Ivette Odonnell MD PCP - General Pediatrics 11/29/21
--- OUTSIDE RECORDS SUMMARY | 2024-11-29 14:30 | XMS_ITS | Data Portability ---
Author Organization [facility] JOAQUIN jackson - MWPS - Address [address] [place] [address] Care Team Providers Care Luncheonette Manager Name Role Phone TAVON LOU Referring Provider AARON Mckee Primary Care Provider CAM MATHEW Hydropulper Operator Unavailable Assessment No assessment recorded. Plan of Treatment Reminders Order Date Submit Date Provider Last Modified By Organization Details Last Modified Time Details Appointments None record ed. Lab yeast, organi sm specif ic cultur e, unspec ified specim en 2020 [facility] (Lab), [address] [place] [address], [address], 10:54:03 tricho monas, wet mount, urine 2020 [facility] (Lab), [address] [place], [address], 11:24:07 CT + NG DNA, PCR, urine 2020 021 [facility] (Lab), [address] [place] [address], [address], 07:07:11 bacter ial vagino sis panel, vagina l 2020 021 [facility] (Lab), [address] [place], [address], 1 11:24:08 bacter ial vagino sis panel, vagina l 2020 021 [facility] (Lab), [address] [place] [address], [address], 1 11:25:16 yeast, organi sm specif ic cultur e, unspec ified specim en 2020 021 [facility] (Lab), [address] [place] [address], [address], 1 09:36:26 CT + NG DNA, PCR, urine 2020 021 [facility] (Lab), [address] [place] [address], [address], 1 15:25:21 tricho monas vagina lis RNA 2020 021 [email or web address] (Lab), [address] [place] [address], [address], 1 09:44:37 cultur e, genita l, mycopl asma + ureapl asma 2020 021 [facility] (Lab), [address] [place] [address], [address], 1 16:49:12 tricho monas, wet mount, urine 2020 021 [facility] (Lab), [address] [place] [address], [address], 1 11:25:17 CT + NG DNA, PCR, urine 2020 021 [facility] (Lab), [address] [place] [address], [address], 1 06:09:12 HIV (1+2) Ab screen , serum [address] (Lab), [address] [place] [address], [address], 0 07:48:36 neisse thalia gonorr hoeae, cultur e, unspec ified specim en [address] (Lab), [address] [place] [address], [address], 0 10:48:07 bacter ial vagino sis panel, vagina l 2019 020 [facility] (Lab), [address] [place] [address], [address], 0 20:10:09 yeast, organi sm specif ic cultur e, unspec ified specim en 2019 020 [facility] (Lab), [address] [place] [address], [address], 0 11:43:38 RPR (rapid plasma reagin ), serum 2019 [facility] (Lab), [address] [place] [address], [address], 0 12:08:10 hepati tis B surfac e Ab, qualit ative, serum 2019 [facility] (Lab), [address] [place] [address], [address], 0 12:08:14 HBsAg (hepat itis B surfac e Ag), serum 2019 [facility] (Lab), [address] [place], [address], 0 12:08:12 hepati tis C virus Ab, serum 2019 020 [facility] (Lab), [address] [place], [address], 0 12:08:15 Referral None record ed. Procedures None record ed. Surgeries None record ed. Imaging None record ed. Medication Orders metron idazol e 500 mg tablet 2020 [facility]armacy #[id number], [address] [place] [address], [address], 1 10:03:34 Junel 1.5/30 (21) 1.5 mg-30 mcg tablet 2020 021 [facility]/Pharmacy #[id number], [place], [address], 1 15:26:29 Patient TargetsNo targets recorded. Patient Instructions Encounter Date Encounter Id Patient Instructions Last Modified By Organization Details Last Modified Time 02/17/2020 [id number] 1. Nexplanon implant removed today intact. The patient desires to start back up on her OCPs. She has 2 months supply at home. She was advised to call for a refill until her next annual due 09/2020. Not available 02/17/2020 15:25:01 07/23/2020 [id number] 1. Vaginal cultu res done today due to pain with intercourse and discharge seen on exam. The patient will be notified of her results when available. 2. STD testing done per patient request. Not available 07/23/2020 11:42:47 10/19/2020 [id number] 1. No paps yet. Per ACCP guidelines pap smears begin at age 21. 2. GC/CT vaginal culture done per age recommendations and patient request. 3. Patient was switched to high dose OCP to see if that improves breakthrough bleeding in beginning of pill pack. Patient was advised to call the office with any concerns. 4. Condoms 100% recommended 5. Annual in 1 year or as needed Not available 10/19/2020 15:58:09 03/30/2021 [id number] Cultures done as above and will treat pending results as symptoms have resolved and no clinical findings on exam suggestive of need for immediate treatment. All questions answered. [email or web address] Not available 03/30/2021 17:52:55 08/05/2021 [id number] 1. Vaginal cultu res obtained today for concern of abnormal discharge. Based on symptom profile and exam today the patient was treated presumtively for BV with Metronidazole tablets. She will be notified of culture results when available. Not available 08/05/2021 10:04:49 Reason for Referral None Reported. Results Created Date Observation Date Name Description Value Unit Range Abnormal Flag Note LastModifiedBy Organization Detail LastModifiedTime 07/23/20 20 07/23/2020 bacte rial vagin osis panel , vagin al bacterial vaginosis test Negat yeni for Bacte rial Vagin osis Test [facility] [address] [place] [address] Phone : [phone] Eri Sales MD, Medic al Direc tor. CLIA #[id number]. Not Available [facility] (Lab) [address] [place], [address], 07/23/2020 20:10:09 07/23/20 20 07/23/2020 bacte rial vagin osis panel , vagin al note Patie nt accou nt numbe r: [id number] Order ing physi katherine: Katlyn echols, Megha grewal [employer] Other provi ders: Megha echols, , , , Megha echols, , Not Available [facility] (Lab) [address] [place], [address], 07/23/2020 20:10:09 07/23/20 20 07/23/2020 HIV (1+2) antib odies , EIA, serum , refle x HIV-1 weste rn blot (WB) HIV Ag Ab Nonrea ctive nonrea ctive HIV-1 , P24 Ag and/o r HIV-1 /HIV- 2 Ab not detec kike Not Available [facility] (Lab) [address] [place] [address], [address], 07/24/2020 10:37:12 07/23/20 20 07/23/2020 HIV (1+2) antib odies , EIA, serum , refle x HIV-1 weste rn blot (WB) note Patie nt accou nt numbe r: [id number] Order ing physi katherine: Camar a, Megha ica [employer] Other provi ders: Megha ica Camar a, , , , Megha ica Camar a, , Not Available [facility] (Lab) [address] [place] [address], [address], 07/24/2020 10:37:12 07/23/20 20 07/23/2020 yeast , organ ism speci fic cultu re, unspe cifie d speci men yeast culture No Yeast isola kike Test perfo rmed by [address] [address] Phone : [phone] Eri Sales MD, Medic al [facility] tor. CLIA #[id number] 6. Not Available [facility] (Lab) [address] [place] [address], [address], 07/25/2020 09:53:15 07/23/20 20 07/23/2020 yeast , organ ism speci fic cultu re, unspe cifie d speci men note Patie nt accou nt numbe r: [id number] 43 Order ing physi katherine: Camar a, Megha ica [employer] Other provi ders: Megha ica Camar a, , , , Megha ica Camar a, , Not Available [facility] (Lab) [address] [place], [address], 07/25/2020 09:53:15 07/23/20 20 07/23/2020 N.sadiq orrho eae JESUS, genit al N.gonorrhoea e JESUS, genital Negati ve negati ve Perfo rmed at: RN - [facility] [place] [address], [place], [place] [address] Lab Direc tor: Martha Boyce MD, Phone : [phone] Not Available [facility] (Lab) [address] [place] [address], [address], 07/27/2020 05:08:21 07/23/20 20 07/23/2020 N.sadiq orrho eae JESUS, genit al note Patie nt accou nt numbe r: [id number] Order ing physi katherine: Camar a, Megha ica [employer] Other provi ders: Megha ica Camar a, , , , Megha ica Camar a, , Not Available [facility] (Lab) [address] [place] [address], [address], 07/27/2020 05:08:21 07/23/20 20 07/23/2020 RPR (rapi d plasm a reagi n), serum anti-trepone mal IgG christina NEGATI VE negati ve A negat yeni resul t does not precl ude the possi bilit y of a very recen t infec tion withi n the last 2-3 weeks with T. palli dum. Not Available [facility] (Lab) [address] [place] [address], [address], 07/27/2020 12:08:10 07/23/20 20 07/23/2020 RPR (rapi d plasm a reagi n), serum note Patie nt accou nt numbe r: [id number] Order ing physi katherine: Camar a, Megha ica [employer] Other provi ders: Megha ica Camar a, , , , Megha ica Camar a, , Not Available [facility] (Lab) [address] [place] [address], [address], 07/27/2020 12:08:10 07/23/20 20 07/23/2020 HBsAg (hepa titis B surfa ce Ag), serum HBsAg Nonrea ctive nonrea ctive Not Available [facility] (Lab) [address] [place], [address], 07/27/2020 12:08:12 07/23/20 20 07/23/2020 HBsAg (hepa titis B surfa ce Ag), serum note Patie nt accou nt numbe r: [id number] 43 Order ing physi katherine: Srinivasaar a, Megha ica [employer] Other provi ders: Megha ica Srinivasaar a, , , , Megha ica Srinivasaar a, , Not Available [facility] (Lab) [address] [place] [address], [address], 07/27/2020 12:08:12 07/23/20 20 07/23/2020 hepat itis B surfa ce Ab, quali tativ e, serum hep BS Ab unit < 8.0 mIU/m L Incon siste nt with Immun ity: <8.0 Consi stent with Immun ity: >=12. 0 Not Available [facility] (Lab) [address] [place] [address], [address], 07/27/2020 12:08:13 07/23/20 20 07/23/2020 hepat itis B surfa ce Ab, quali tativ e, serum hep BS Ab Nonrea ctive Not Available [facility] (Lab) [address] [place], [address], 07/27/2020 12:08:13 07/23/20 20 07/23/2020 hepat itis B surfa ce Ab, quali tativ e, serum note Patie nt accou nt numbe r: [id number] Order ing physi katherine: Camar a, Megha ica [employer] Other provi ders: Megha ica Camar a, , , , Megha ica Camar a, , Not Available [facility] (Lab) [address] [place] [address], [address], 07/27/2020 12:08:13 07/23/20 20 07/23/2020 hepat itis C virus Ab, serum hepatitis C Ab Nonrea ctive nonrea ctive Not Available [facility] (Lab) [address] [place] [address], [address], 07/27/2020 12:08:15 07/23/20 20 07/23/2020 hepat itis C virus Ab, serum note Patie nt accou nt numbe r: [id number] 43 Order ing physi katherine: Camar a, Megha ica [employer] Other provi ders: Megha ica Camar a, , , , Megha ica Camar a, , Not Available [facility] (Lab) [address] [place] [address], [address], 07/27/2020 12:08:15 07/23/20 20 07/23/2020 C.tra choma tis JESUS, genit al C.trachomati s JESUS, genital Negati ve negati ve Perfo rmed at: RN - [facility] [place] [address] [place] [address] [place] [address] Lab Direc tor: Martha Boyce MD, Phone : [phone] Not Available [facility] (Lab) [address] [place] [address], [address], 08/03/2020 16:10:24 07/23/20 20 07/23/2020 C.tra choma tis JESUS, genit al note Patie nt accou nt numbe r: [id number] 43 Order ing physi katherine: Camar a, Megha ica [employer] Other provi ders: Megha ica Camar a, , , , Megha ica Camar a, , Not Available [facility] (Lab) [address] [place], [address], 08/03/2020 16:10:24 07/23/20 20 07/23/2020 N.sadiq orrho eae JESUS, genit al N.gonorrhoea e JESUS, genital Negati ve negati ve Perfo rmed at: RN - [facility] [place] [address], [place] [address] Lab Direc tor: Martha Boyce MD, Phone : [phone] Not Available [facility] (Lab) [address] [place] [address], [address], 08/03/2020 16:10:25 07/23/20 20 07/23/2020 N.sadiq orrho eae JESUS, genit al note Patie nt accou nt numbe r: [id number] 43 Order ing physi katherine: Katlyn echols, Megha grewal [employer] Other provi ders: Megha echols, , , , Megha ica Katlyn a, , Not Available [facility] (Lab) [address] [place] [address], [address], 08/03/2020 16:10:25 10/19/19 21 10/19/2020 CT + NG DNA, PCR, urine C.trachomati s JESUS Negati ve negati ve Not Available [facility] (Lab) [address] [place] [address], [address], 10/21/2020 06:09:12 10/19/19 21 10/19/2020 CT + NG DNA, PCR, urine N.gonorrhoea e JESUS Negati ve negati ve Perfo rmed at: CAMILO Perez [facility] [place] [address], [place] [address] Lab Direc tor: Martha Boyce MD, Phone : [phone] Not Available [facility] (Lab) [address] [place] [address], [address], 10/21/2020 06:09:12 10/19/19 10/19/2020 CT + NG DNA, PCR, urine note Patie nt accou nt numbe r: [id number] Order ing physi katherine: Camar a, Megha ica [employer] Other provi ders: Megha ica Camar a, , , , Megha ica Camar a, , Not Available [facility] (Lab) [address] [place] [address], [address], 10/21/2020 06:09:12 03/30/20 21 03/30/2021 BACTE RIAL VAGIN OSIS TEST bacterial vaginosis test Negat yeni for Bacte rial Vagin osis Test perfo rmed by [facility] [address] [place] [address] Phone : [phone] Eri Sales MD, Medic al [facility] tor. CLIA #[id number] 6. Not Available [facility] (Lab) [address] [place] [address], [address], 03/31/2021 11:25:16 03/30/20 21 03/30/2021 BACTE RIAL VAGIN OSIS TEST note Patie nt accou nt numbe r: [id number] Order [facility] physi katherine: Mathew , Ngozi sa L Other provi ders: Ngozi sa Mathew , , , , Ngozi sa Mathew , , Not Available [facility] (Lab) [address] [place] [address], [address], 03/31/2021 11:25:16 03/30/20 21 03/30/2021 TRICH OMONA S VAGIN AKBAR ANTIG EN trichomonas vaginalis antigen Negat yeni for Trich omona s vagin akbar Test perfo rmed by [facility] [address] [place] [address] Phone : [phone] Eri Sales MD, Medic al Dire tor. CLIA #[id number] 6. Not Available [facility] (Lab) [address] [place], [address], 03/31/2021 11:25:17 03/30/20 21 03/30/2021 TRICH OMONA S VAGIN AKBAR ANTIG EN note Patie nt accou nt numbe r: [id number] Order ing physi katherine: Mathew , Ngozi sa L Other provi ders: Ngozi sa Mathew , , , , Ngozi sa Mathew , , Not Available [facility] (Lab) [address] [place], [address], 03/31/2021 11:25:17 03/30/20 21 03/30/2021 YEAST CULTU RE yeast culture No Yeast isola kike Presu mptiv e Gardn erell a vagin akbar - Heavy growt h (4+) Test perfo rmed by [address] [address] Phone : [phone] Eri Sales MD, Medic al Dire tor. CLIA #[id number] 6. Not Available [facility] (Lab) [address] [place] [address], [address], 04/01/2021 09:36:26 03/30/20 21 03/30/2021 YEAST CULTU RE note Patie nt accou nt numbe r: [id number] Order ing physi katherine: Mathew , Ngozi sa L Other provi ders: Ngozi sa Mathew , , , , Ngozi sa Mathew , , Not Available [facility] (Lab) [address] [place], [address], 04/01/2021 09:36:26 03/30/20 21 03/30/2021 CHLAM YDIA/ GC APTIM A JESUS,G ENITA C.trachomati s JESUS Negati ve Refer ence Range : Negat yeni Not Available [facility] (Lab) [address] [place] [address], [address], 04/04/2021 15:25:21 03/30/20 21 03/30/2021 CHLAM YDIA/ GC APTIM A JESUS,G ENITA N.gonorrhoea e JESUS Negati ve Refer ence Range : Negat yeni Test Perfo rmed At: [facility] [place] [address], [place] [address] Not Available [facility] (Lab) [address] [place], [address], 04/04/2021 15:25:21 03/30/20 21 03/30/2021 CHLAM YDIA/ GC APTIM A JESUS,G ENITA note Patie nt accou nt numbe r: [id number] Order ing physi katherine: Mathew , Ngozi sa L Other provi ders: Ngozi sa Mathew , , , , Ngozi sa Mathew , , Not Available [facility] (Lab) [address] [place] [address], [address], 04/04/2021 15:25:21 03/30/20 21 03/30/2021 MYCOP LASMA /UREA PLASM A CULTU RE mycoplasma/u reaplasma culture abnormal TEST PERFO RMED BY: [facility] [address] [place] [address] UREAP LASMA UREAL YTICU M MYCOP LASMA HOMIN IS Not Available [facility] (Lab) [address] [place] [address], [address], 04/06/2021 16:49:10 03/30/20 21 03/30/2021 MYCOP LASMA /UREA PLASM A CULTU RE note Patie nt accou nt numbe r: [id number] Order ing physi katherine: Mathew , Ngozi sa L Other provi ders: Ngozi sa Mathew , , , , Ngozi sa Mathew , , Not Available [facility] (Lab) [address] [place], [address], 04/06/2021 16:49:10 06/20/2006/20/2021 CBC W/ DIFF HGB 12.8 g/dL 12.0-1 6.0 Not Available [facility] (Lab) [address] [place], [address], 06/20/2021 12:42:08 06/20/2006/20/2021 CBC W/ DIFF HCT 38.7 % 36.0-4 8.0 Not Available [facility] (Lab) [address] [place], [address], 06/20/2021 12:42:08 06/20/2006/20/2021 CBC W/ DIFF WBC 6.3 10*3/ uL 4.0-11 .0 Not Available [facility] (Lab) [address] [place], [address], 06/20/2021 12:42:08 06/20/20 21 06/20/2021 CBC W/ DIFF RBC 4.48 10*6/ uL 4.00-5 .20 Not Available [facility] (Lab) [address] [place], [address], 06/20/2021 12:42:08 06/20/2006/20/2021 CBC W/ DIFF MCV 86.4 fL 79.0-9 7.0 Not Available [facility] (Lab) [address] [place], [address], 06/20/2021 12:42:08 06/20/2006/20/2021 CBC W/ DIFF MCH 28.6 pg 27.0-3 2.0 Not Available [facility] (Lab) [address] [place], [address], 06/20/2021 12:42:08 06/20/20 21 06/20/2021 CBC W/ DIFF MCHC 33.1 g/dL 32.0-3 6.0 Not Available [facility] (Lab) [address] [place], [address], 06/20/2021 12:42:08 06/20/20 21 06/20/2021 CBC W/ DIFF RDW 13.3 % 11.5-1 4.5 Not Available [facility] (Lab) [address] [place], [address], 06/20/2021 12:42:08 06/20/20 21 06/20/2021 CBC W/ DIFF plt 245 10*3/ uL 150-40 0 Not Available [facility] (Lab) [address] [place], [address], 06/20/2021 12:42:08 06/20/20 21 06/20/2021 CBC W/ DIFF nucleated RBC % 0.0 /100W BC Not Available [facility] (Lab) [address] [place], [address], 06/20/2021 12:42:08 06/20/20 21 06/20/2021 CBC W/ DIFF seg% 70.1 % Not Available [facility] (Lab) [address] [place], [address], 06/20/2021 12:42:08 06/20/20 21 06/20/2021 CBC W/ DIFF lymph% 20.4 % Not Available [facility] (Lab) [address] [place], [address], 06/20/2021 12:42:08 06/20/20 21 06/20/2021 CBC W/ DIFF mono% 7.9 % Not Available [facility] (Lab) [address] [place], [address], 06/20/2021 12:42:08 06/20/20 21 06/20/2021 CBC W/ DIFF eos% 1.1 % Not Available [facility] (Lab) [address] [place], [address], 06/20/2021 12:42:08 06/20/20 21 06/20/2021 CBC W/ DIFF baso% 0.3 % Not Available [facility] (Lab) [address] [place], [address], 06/20/2021 12:42:08 06/20/20 21 06/20/2021 CBC W/ DIFF nucleated RBC % 0.0 /100W BC Not Available [facility] (Lab) [address] [place], [address], 06/20/2021 12:42:08 06/20/20 21 06/20/2021 CBC W/ DIFF segs# 4.4 10*3/ uL 2.4-8. 1 Absol jenaro Neutr ophil Count is equiv alent to Seg# Not Available [facility] (Lab) [address] [place], [address], 06/20/2021 12:42:08 06/20/20 21 06/20/2021 CBC W/ DIFF lymph# 1.3 10*3/ uL 1.0-4. 0 Not Available [facility] (Lab) [address] [place], [address], 06/20/2021 12:42:08 06/20/20 21 06/20/2021 CBC W/ DIFF mono# 0.5 10*3/ uL 0.0-1. 5 Not Available [facility] (Lab) [address] [place], [address], 06/20/2021 12:42:08 06/20/20 21 06/20/2021 CBC W/ DIFF eos# 0.1 10*3/ uL 0.0-0. 5 Not Available [facility] (Lab) [address] [place], [address], 06/20/2021 12:42:08 06/20/20 21 06/20/2021 CBC W/ DIFF baso# 0.0 10*3/ uL 0.0-0. 1 Not Available [facility] (Lab) [address] [place], [address], 06/20/2021 12:42:08 06/20/20 21 06/20/2021 CBC W/ DIFF note Patie nt accou nt numbe r: [id number] Order ing physi katherine: Rosalinda mancera, Rachelle VO Other provi ders: [facility] Phys[facility] katherine, , , , Rachelle mancera, Megha uri Camar a, [employer] Physi katherine Not Available [facility] (Lab) [address] [place], [address], 06/20/2021 12:42:08 06/20/20 21 06/20/2021 COMPR EHENS YENI METAB OLIC PANEL sodium 138 mmol/ L 135-14 5 Not Available [facility] (Lab) [address] [place], [address], 06/20/2021 13:01:09 06/20/20 21 06/20/2021 COMPR EHENS YENI METAB OLIC PANEL potassium 4.1 mmol/ L 3.5-5. 1 Not Available [facility] (Lab) [address] [place], [address], 06/20/2021 13:01:09 06/20/20 21 06/20/2021 COMPR EHENS YENI METAB OLIC PANEL chloride 104 mmol/ L 96-104 Not Available [facility] (Lab) [address] [place], [address], 06/20/2021 13:01:09 06/20/20 21 06/20/2021 COMPR EHENS EYNI METAB OLIC PANEL carbon dioxide 24 mmol/ L 22-30 Not Available [facility] (Lab) [address] [place], [address], 06/20/2021 13:01:09 06/20/20 21 06/20/2021 COMPR EHENS YENI METAB OLIC PANEL anion gap 10 mmol/ L 9-18 Not Available [facility] (Lab) [address] [place], [address], 06/20/2021 13:01:09 06/20/20 21 06/20/2021 COMPR EHENS YENI METAB OLIC PANEL glucose 89 mg/dL 70-105 Not Available [facility] (Lab) [address] [place], [address], 06/20/2021 13:01:09 06/20/20 21 06/20/2021 COMPR EHENS YENI METAB OLIC PANEL BUN 10 mg/dL 8-21 Not Available [facility] (Lab) [address] [place], [address], 06/20/2021 13:01:09 06/20/20 21 06/20/2021 COMPR EHENS YENI METAB OLIC PANEL creatinine 0.62 mg/dL 0.51-0 .95 Not Available [facility] (Lab) [address] [place], [address], 06/20/2021 13:01:09 06/20/20 21 06/20/2021 COMPR EHENS YENI METAB OLIC PANEL estimated GFR > 60 mL/mi n >60 Not Available [facility] (Lab) [address] [place], [address], 06/20/2021 13:01:09 06/20/20 21 06/20/2021 COMPR EHENS YENI METAB OLIC PANEL estimated GFR, -[place] > 60 mL/mi n >60 Not Available [facility] (Lab) [address] [place], [address], 06/20/2021 13:01:09 06/20/20 21 06/20/2021 COMPR EHENS YENI METAB OLIC PANEL calcium 9.3 mg/dL 8.6-10 .3 Not Available [facility] (Lab) [address] [place], [address], 06/20/2021 13:01:09 06/20/20 21 06/20/2021 COMPR EHENS YENI METAB OLIC PANEL total protein 7.3 g/dL 6.2-8. 4 Not Available [facility] (Lab) [address] [place], [address], 06/20/2021 13:01:09 06/20/20 21 06/20/2021 COMPR EHENS YENI METAB OLIC PANEL albumin 4.2 g/dL 3.5-5. 0 Not Available [facility] (Lab) [address] [place], [address], 06/20/2021 13:01:09 06/20/20 21 06/20/2021 COMPR EHENS YENI METAB OLIC PANEL bilirubin total 0.2 mg/dL 0.2-1. 0 Not Available [facility] (Lab) [address] [place], [address], 06/20/2021 13:01:09 06/20/20 21 06/20/2021 COMPR EHENS YENI METAB OLIC PANEL AST/SGOT 16 U/L 10-34 Not Available [facility] (Lab) [address] [place], [address], 06/20/2021 13:01:09 06/20/20 21 06/20/2021 COMPR EHENS YENI METAB OLIC PANEL ALT/SGPT 14 U/L 10-36 Not Available [facility] (Lab) [address] [place], [address], 06/20/2021 13:01:09 06/20/20 21 06/20/2021 COMPR EHENS YENI METAB OLIC PANEL alk phos total 82 U/L 25-160 Not Available [facility] (Lab) [address] [place], [address], 06/20/2021 13:01:09 06/20/20 21 06/20/2021 COMPR EHENS YENI METAB OLIC PANEL note Patie nt accou nt numbe r: [id number] Order ing physi katherine: Langb urd, Rachelle PA-C Other provi ders: [facility] katherine, , , , Rachelle Langb urd, Megha ica Camar a, [facility] katherine Not Available [facility] (Lab) [address] [place] [address], [address], 06/20/2021 13:01:09 06/20/20 21 06/20/2021 C-ERNIE CTIVE PROTE IN C-reactive protein 21.8 mg/L 0.0-5. 0 high Not Available [facility] (Lab) [address] [place], [address], 06/20/2021 13:01:11 06/20/20 21 06/20/2021 C-ERNIE CTIVE PROTE IN note Patie nt accou nt numbe r: [id number] Order ing physi katherine: Langb urd, Rachelle PA-C Other provi ders: [facility] k[facility], , , , Rachelle Langb urd, Megha ica Camar a, [facility] Physi katherine Not Available [facility] (Lab) [address] [place], [address], 06/20/2021 13:01:11 06/20/2006/20/2021 URINA LYSIS UA color YELLOW Not Available [facility] (Lab) [address] [place], [address], 06/20/2021 13:06:06 06/20/2006/20/2021 URINA LYSIS UA appearance SLIGHT LY CLOUDY clear Not Available [facility] (Lab) [address] [place], [address], 06/20/2021 13:06:06 06/20/2006/20/2021 URINA LYSIS urine specific gravity 1.025 1.003- 1.030 Not Available [facility] (Lab) [address] [place], [address], 06/20/2021 13:06:06 06/20/2006/20/2021 URINA LYSIS UA pH 6.0 4.5-8. 5 Not Available [facility] ([facility]) [address] [place], [address], 06/20/2021 13:06:06 06/20/2006/20/2021 URINA LYSIS UA protein NEGATI VE mg/dL negati ve Not Available [facility] ([facility]) [address] [place], [address], 06/20/2021 13:06:06 06/20/2006/20/2021 URINA LYSIS UA glucose NEGATI VE mg/dL negati ve Not Available [facility] ([facility]) [address] [place], [address], 06/20/2021 13:06:06 06/20/2006/20/2021 URINA LYSIS UA ketone NEGATI VE mg/dL negati ve Not Available [facility] ([facility]) [address] [place], [address], 06/20/2021 13:06:06 06/20/20 21 06/20/2021 URINA LYSIS UA bilirubin SMALL negati ve Not Available [facility] ([facility]) [address] [place], [address], 06/20/2021 13:06:06 06/20/2006/20/2021 URINA LYSIS UA blood TRACE negati ve Not Available [facility] ([facility]) [address] [place], [address], 06/20/2021 13:06:06 06/20/20 21 06/20/2021 URINA LYSIS UA nitrite NEGATI VE negati ve Not Available [facility] ([facility]) [address] [place], [address], 06/20/2021 13:06:06 06/20/2006/20/2021 URINA LYSIS UA leuko SMALL negati ve Not Available [facility] ([facility]) [address] [place], [address], 06/20/2021 13:06:06 06/20/2006/20/2021 URINA LYSIS note Patie nt accou nt numbe r: [id number] Order ing physi katherine: Rosalinda mancera, Rachelle VO Other provi ders: [facility] katherine, , , , Rachelle mancera, Megha echols, [facility] katherine Not Available [facility] ([facility]) [address] [place], [address], 06/20/2021 13:06:06 06/20/20 21 06/20/2021 UA SEDIM ENT UA RBC 5-10 /hpf 0-2 abnormal Not Available [facility] ([facility]) [address] [place], [address], 06/20/2021 13:06:07 06/20/20 21 06/20/2021 UA SEDIM ENT UA WBC 15-25 /hpf 0-5 abnormal Not Available [facility] ([facility]) [address] [place], [address], 06/20/2021 13:06:07 06/20/20 21 06/20/2021 UA SEDIM ENT UA bacteria MODERA TE none seen abnormal Not Available [facility] ([facility]) [address] [place], [address], 06/20/2021 13:06:07 06/20/20 21 06/20/2021 UA SEDIM ENT UA squam epithelial cells MODERA TE /hpf few abnormal Not Available [facility] ([facility]) [address] [place], [address], 06/20/2021 13:06:07 06/20/20 21 06/20/2021 UA SEDIM ENT UA mucus FEW /hpf few Not Available [facility] ([facility]) [address] [place], [address], 06/20/2021 13:06:07 06/20/20 21 06/20/2021 UA SEDIM ENT note Patie nt accou nt numbe r: [id number] Order ing physi katherine: Rosalinda mancera, Rachelle VO Other provi ders: [facility] k[facility], , , , Rachelle mancera, Megha echols, [facility] katherine Not Available [facility] ([facility]) [address] [place], [address], 06/20/2021 13:06:07 06/20/20 21 06/20/2021 URINE HCG, QUAL ur HCG qual NEGATI VE negati ve Not Available [facility] ([facility]) [address] [place] [address], [address], 06/20/2021 13:06:07 06/20/20 21 06/20/2021 URINE HCG, QUAL note Patie nt accou nt numbe r: [id number] 69 Order ing physi katherine: Langb urd, Rachelle VO Other provi ders: [facility], , , , Rachelle Ferrellb urd, Megha ica Camar a, [facility] katherine Not Available [facility] ([facility]) [address] [place] [address], [address], 06/20/2021 13:06:07 08/05/20 21 08/05/2021 YEAST CULTU RE yeast culture No Yeast isola kike [place] [address] Phone : [phone] Eri Sales MD, [facility]. CLIA #[id number] 6. 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 CLIA #[id number] 6. Not Available [facility] ([facility]) [address] [place] [address], [address], 08/06/2021 11:24:07 08/05/20 21 08/05/2021 TRICH OMONA S VAGIN AKBAR ANTIG EN note Patie nt accou nt numbe r: [id number] Order ing physi katherine: Camar a, Megha ica MAINTENANCE WORK[employer] Other provi ders: Megha ica Camar a, , , , Megha ica Camar a, , Not Available [facility] ([facility]) [address] [place] [address], [address], 08/06/2021 11:24:07 08/05/20 21 08/05/2021 BACTE RIAL VAGIN OSIS TEST bacterial vaginosis test Negat yeni for Bacte rial Vagin osis Test perfo rmed by [facility] [address] [address] Phone : [phone] Eri Sales MD, [facility]. CLIA #[id number] 6. 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[employer] Other provi ders: Megha ica Camar a, , , , Megha ica Camar a, , Not Available [facility] ([facility]) [address] [place] [address], [address], 08/06/2021 11:24:08 08/05/20 21 08/05/2021 CHLAM YDIA/ GC APTIM A JESUS,G ENITA C.trachomati s JESUS Negati ve negati ve Not Available [facility] ([facility]) [address] [place] [address], [address], 08/08/2021 07:07:11 08/05/20 21 08/05/2021 CHLAM YDIA/ GC APTIM A JESUS,G ENITA N.gonorrhoea e JESUS Negati ve negati ve Perfo rmed at: RN - [facility] [place] [address], [place] [address] Lab [facility] tor: Martha Boyce MD, Phone : [phone] Not Available [facility] ([facility]) [address] [place] [address], [address], 08/08/2021 07:07:11 08/05/20 21 08/05/2021 CHLAM YDIA/ GC APTIM A JESUS,G ENITA note Patie nt accou nt numbe r: [id number] Order ing physi katherine: Katlyn echols, Megha grewal MAINTENANCE WORKER [employer] Other provi ders: Megha echols, , , , Megha echols, , Not Available [facility] ([facility]) [address] [place] [address], [address], 08/08/2021 07:07:11 06/20/20 21 06/20/2021 CT, abdom en + pelvi s, w/ contr ast [facility] [address] [address] Date of Pan e: Date/T antoniojeimy Churchill kike: [id number] Locati on: [facility] Mikelin g Name: KWAME CASTILLO : Acct Number : [id number] Phone #: [phone] Sig brenda ___ Mendoza scherer MD: June chen,Twyla romero PA-Cherry Result s: Exam: CT ABD/PE L W/ IV CON Signs/ Sympto ms: RLQ pain, append icitis vs ovaria n cyst HISTOR Y: Right lower quadra nt pain. TECHNI QUE: Multid etecto r axial CT images were perfor med of the abdome n and pelvis after the admini strati on of 75 mL Isovue [address] Montero l and sagitt al recons tructi ons perfor med. All CT scans are perfor med using dose optimi zation techni ques as approp riate to a perfor med exam includ ing the follow ing: X2022 Automa kike exposu re contro l X2022 Adjust ment of the mA and/or kV accord ing to patien t size (this includ es techni ques or standa rdized protoc ols for target ed exams where dose is matche d to indica tion / reason for exam; i.e. extrem ities or head X2022 Use of iterat yeni recons tructi on techni que COMPAR CLOVER: None 0 CT exams perfor med within the prior 12 months at this facili ty. FINDIN GS: LOWER THORAX : Limite d evalua tion of the lung bases demons trates no acute abnorm ality. HEPATO BILIAR Y: The liver is normal in size and attenu ation. There are no suspic ious hepati c lesion s. No intrah epatic or extrah epatic bile duct dilati on. The gallbl adder is normal . SPLEEN : No signif icant masses or spleno megaly . PANCRE : No masses or inflam matory diseas e. ADRENA L GLANDS : No masses or enlarg ement. KIDNEY S AND URETER S: 13 x 15 mm low-de nsity lesion is presen t within the upper pole of the left kidney . There appear s to be layeri ng high densit y materi al within this struct ure. Findin g may repres ent a calyce al divert iculum . Kidney s enhanc e symmet ricall y. No hydron ephros is. STOMAC H/GI TRACT: No bowel obstru ction. Oral contra st admini stered for this exam extend s to the left colon. Append ix is visual ized and normal in calibe r. Oral contra st is presen t within the append ix. BLADDE R: Decomp ressed PELVIC ORGANS : Trace pelvic free fluid is presen t. Uterus is presen t. LYMPH NODES: Minor nodes throug hout. VESSEL S: No acute findin gs or hemody namica lly signif icant diseas e. BONES AND SOFT TISSUE S: No fractu re destru ctive lesion or aggres sive proces s. IMPRES RAMO: 1. Normal append ix. 2. Low-de nsity lesion upper pole left kidney , possib ly a cyst or calyce al divert iculum . Recomm end ultras ound for furthe r evalua tion. 3. Trace pelvic free fluid, nonspe cific but possib ly physio logic. Transc ribed: RW 1508 Report [id number] Copies to: Megha Riley ica MAINTENANCE WORK[employer]; June chen,Twyla romero PA-C Interp reting Physic tatiana: Candice Bansal MD (PO) Approv ed Electr onical ly: Candice Bansal MD (PO) 1610 Patien t accoun t number : [id number] Orderi ng physic tatiana: Rachelle Watkins rd Other provid ers: [facility], , , Wei Groves , [facility] tatiana, Rachelle Watkins [facility] ([facility] Dept[facility] [address] [facility], [place], [address], 06/21/2021 07:41:29 Result Notes None recorded. Problems No Known Problems Procedures Surgical History Date Name Laterality Status Provider Name and Address Organization Details Recorded Time 0 Nexplanon Removal completed RYAN RILEY CNP [address] [place], [address], [facility] 02/17/2020 15:24:09 0 Implanon/Nexpl anon Implant Insertion completed Cam Mathew MD [address] [place], [address], [facility] 10/01/2019 11:49:17 Imaging Results Imaging Date Name Status LastModified by Organiz ation Details LastModified Time 06/20/2021 CT, abdomen + pelvis, w/ contrast completed [address] (Scheduling Dept) [address] [place], [address], 06/21/2021 07:41:29 Procedure Notes None recorded. Medical Equipment None Reported. Allergies Allergen ID Allergen Name Allergen Category Reaction Reaction Severity Criticality Documentation Date Start Date Code Code System Note Provider Name and Address Organization Details Recorded Time 635025 POLLEN EXTRACTS environme nt,medica tion Not available Not available Not available 08/05/2021 20965 6 RxNorm Jasmina Sullivan [facility], [facility] 09:48:25 216421 wheat preparati on food,medi cation nausea Not available Not available 08/05/2021 04616 52 RxNorm Jasmina Sullivan [facility], [facility] 09:48:25 920301 sulfameth oxazole medicatio n nausea Not available Not available 08/05/2021 92231 RxNorm Jasmina richardson, [facility] 09:48:25 355345 cow milk allergeni c extract food,medi cation nausea Not available Not available 08/05/2021 52164 5 RxNorm Jasmina richardson, [facility] 09:48:25 613061 Product containin g penicilli n (product) medicatio n nausea Not available Not available 08/05/2021 40624 8001 SNOMED Jasmina SinLYSSA [facility] 1 09:48:25 914073 soy environme nt,food,m edication nausea Not available Not available 08/05/2021 49241 UNK Jasmina LYSSA [facility] 1 09:48:25 Medications Name Sig Start Date Stop Date Status Note LastModified by Organization Details LastModified Time amoxicill in 500 mg capsule TAKE 1 CAPSULE BY MOUTH THREE TIMES A DAY FOR 10 DAYS 09/25 completed Not Available Not Available Not Available doxycycli ne hyclate 100 mg capsule TAKE 1 CAPSULE BY MOUTH TWICE A DAY FOR 7 DAYS 08/04 completed Not Available Not Available Not Available azithromy nilam 250 mg tablet TAKE 2 TABLETS BY MOUTH TODAY, THEN TAKE 1 TABLET DAILY FOR 4 DAYS 08/04 completed Not Available Not Available Not Available ondansetr on HCl 4 mg tablet 02/16 completed Not Available Not Available Not Available Diflucan 150 mg tablet Take 1 tablet every 72 hours by oral route. 03/30 completed Not Available Not Available Not Available metronida zole 500 mg tablet Take 1 tablet every 12 hours by oral route for 7 days. active Not Available Not Available No t Available ibuprofen 600 mg tablet 08/04 completed Not Available Not Available Not Available ondansetr on 4 mg disintegr ating tablet 09/25 completed Not Available Not Available Not Available cefdinir 300 mg capsule 09/25 completed Not Available Not Available Not Available amoxicill in 875 mg-potass ium clavulana te 125 mg tablet TAKE 1 TABLET BY MOUTH TWICE A DAY FOR 7 DAYS 10/19 completed Not Available Not Available Not Available 10/06 (21) 1 mg-20 mcg tablet TAKE 1 TABLET BY MOUTH EVERY DAY 03/30 completed Not Available Not Available Not Available (21) 1.5 mg-30 mcg tablet TAKE 1 TABLET BY MOUTH EVERY DAY 2021 active Last annual 10/19/2020 - Needs to schedule annual exam. Not Available Not Available Not Available 10/06 (28) 1 mg-20 mcg (21)/75 mg (7) tablet TAKE 1 TABLET BY MOUTH EVERY DAY active Not Available Not Available No t Available (28) 1.5 mg-30 mcg (21)/75 mg (7) tablet TAKE 1 TABLET BY MOUTH EVERY DAY active Not Available Not Available No t Available Vitals Date Recorded Body height Heart rate Body mass index (BMI) Percentile per age and sex Body mass index (BMI) Body weight Systolic blood pressure Diastolic blood pressure Provider Name and Address Organization Details Last Updated DateTime 0 173.99 cm 65 /min 15 % 18.7 kg/m2 66538.7 5 g 132 mm[Hg] 88 mm[Hg] [facility] 0 14:57:43 Date Recorded Body height Heart rate Body mass index (BMI) Percentile per age and sex Body mass index (BMI) Body weight Systolic blood pressure Diastolic blood pressure Provider Name and Address Organization Details Last Updated DateTime 0 177.8 cm 103 /min 7 % 17.9 kg/m2 81041.0 5 g 118 mm[Hg] 82 mm[Hg] [facility] 0 11:18:59 Date Recorded Body height Body mass index (BMI) Body mass index (BMI) Percentile per age and sex Body weight Systolic blood pressure Diastolic blood pressure Provider Name and Address Organization Details Last Updated DateTime 1 177.8 cm 17.8 kg/m2 6 % 77386.4 5 g 112 mm[Hg] 69 mm[Hg] Angie [facility] 1 15:19:29 Date Recorded Body height Body mass index (BMI) Body mass index (BMI) Percentile per age and sex Body weight Systolic blood pressure Diastolic blood pressure Provider Name and Address Organization Details Last Updated DateTime 1 177.8 cm 18.9 kg/m2 15 % 34886.1 9 g 121 mm[Hg] 80 mm[Hg] [facility] 1 11:34:36 Date Recorded Body height Body mass index (BMI) Percentile per age and sex Body mass index (BMI) Body weight Heart rate Systolic blood pressure Diastolic blood pressure Provider Name and Address Organization Details Last Updated DateTime 1 177.8 cm 11 % 18.6 kg/m2 02590.5 2 g 81 /min 110 mm[Hg] 78 mm[Hg] Jasmian Sullivan [place] - [facility] 09:49:36 Social History Question Answer Notes LastModified by Organizat ion Details LastModified Time Tobacco Smoking Status Never Smoker RYAN RILEY, CONFIGURATION MANAGEMENT MANAGER [address] [place], [address], [facility] 12/17/2018 09:27:58 Do You Have An Advance Directive? No Information not available 07/23/2020 What Is Your Level Of Alcohol Consumption? Occasional Extremely Rare Information not available 07/23/2020 Animal Exposure? Yes Information not available 08/05/2021 Are You Blind Or Do You Have Difficulty Seeing? No Information not available 07/23/2020 Is Blood Transfusion Acceptable In An Emergency? Yes Information not available 07/23/2020 What Is Your Level Of Caffeine Consumption? Occasional [email or web address] Information not available 10/19/2020 How Much Tobacco Do You Chew? None Information not available 07/23/2020 Are You Currently Employed? Yes Information not available 08/05/2021 Are You Deaf Or Do You Have Serious Difficulty Hearing? No Information not available 07/23/2020 What Type Of Diet Are You Following? REGULAR Information not available 07/23/2020 Do You Or Have You Ever Used E-cigarettes Or Vape? 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 0 Information not available 07/23/2020 Which Of Your Hands Is Dominant? Right Information not available 07/23/2020 Live Alone Or With Others? With Others Information not available 08/05/2021 Does The Patient Have Fever OR Cough OR Shortness Of Breath? No Information not available 07/23/2020 In The Last 14 Days, Has The Patient Had Contact With A COVID-19 Positive Patient Or A COVID-19 Suspect Patient Awaiting Test Results? No Information not available 07/23/2020 If Pulse Oximetry Was Done: Is The Patient's Sp02 Less Than 93% On Room Air? No Information not available 07/23/2020 Marital Status Single Informatio n not available 08/05/2021 What Was The Date Of Your Most Recent Tobacco Screening? 08/06/2021 Information not available 08/05/2021 Do You Have Any Pets? Yes 3 Dogs 1 Cat Information not available 08/05/2021 What Is Your Relationship Status? Single Information not available 08/05/2021 Do You Or Have You Ever Used Smokeless Tobacco? Never Used Smokeless Tobacco Information not available 07/23/2020 General Stress Level Medium Information not available 08/05/2021 Do You Feel Stressed (tense, Restless, Nervous, Or Anxious, Or Unable To Sleep At Night)? [id number] Information not available 08/05/2021 Has Tobacco Cessation Counseling Been Provided? No Information not available 08/05/2021 How Many Years Have You Smoked Tobacco? 0 Information not available 08/05/2021 Sex: Female Functional Status Question Answer Note LastModified by Organizat ion Details LastModified Time Urinary incontinence assessment performed? Yes Information not available 08/05/2021 Are you able to care for yourself? Yes Information n ot available 07/23/2020 What is your exercise level? Moderate Information not available 07/23/2020 Mental Status None recorded. Family History Relationship Description Onset Age of this Age Resolved Age Notes LastModified by Organization Details LastModified Time Mother Suspected cervical cancer Not available 2020 09:49:21 Mother Hypertensive disorder Not available 2020 09:49:21 Maternal Grandfather Carcinoma of urinary bladder 60 Not available 2020 09:49:21 Paternal Grandmother Malignant melanoma Not available 2020 09:49:21 Notes:10/19/20: No changes Dis tant maternal relative with breast CA Medical History No medical history recorded. Gynecological History Statement/Question Response Number of Pregnancies? 0 Flow Moderate Date of LMP 07/28/2021 History of infertility N Duration of Flow (days) 4 Date of last pap n/a Age at Menarche 16 Current Control Method BCPs History of Endometriosis N Frequency of Cycle (Q days) 28 History of STI ? N Menses Monthly Y Date of last mammogram n/a History of polycystic ovarian disease N LMP Approximate Obstetrics History GPAL:G 0 P 0 0 0 0 Past Encounters Encounter ID Performer Location Encounter Start Date Encounter Closed Date Diagnosis/Indication Diagnosis SNOMED-CT Code Diagnosis ICD10 Code Diagnosis Note [id number] AMBER FOWLERPS_OB/G [address] [place] [address] 12/17/2018 08:47:31 12/17/2018 10:32:22 Contraception care management 936409100 Z30.9 Gynecologi c examination 62494601 Z01.419 [id number] AMBER FOWLER_OB/G [address] [place] [address] 06/17/2019 14:28:54 06/17/2019 15:10:14 Contraception care management 098856977 Z30.9 Vaginal discharge 973254 006 N89.8 Dysuria 68780999 R30.9 [id number] MD BHARGAV Vizcarra_OB/G [address] [place] [address] 09/25/2019 13:41:52 09/25/2019 14:21:56 Venereal disease screening 026711522 Z11.3 Contracept ion education 811985065 Z30.09 [id number] MD BURKE VizcarraOB/Audi [address] [place] [address] 10/01/2019 11:19:12 10/01/2019 11:47:31 Insertion of subcutaneous contraceptive 938996791 Z30.9 [id number] AMBER FOWLERPS_OB/G [address] [place] [address] 12/24/2019 13:31:20 12/24/2019 15:22:24 Abnormal uterine bleeding 8138918449 9100 N93.9 [id number] RYAN RILEY CNP MWPS_OB/G YN [address] [place] [address] 02/17/2020 14:37:17 02/17/2020 15:23:03 Removal of subcutaneous contraceptive 025780616 Z30.46 [id number] RYAN RILEY CNP [facility]_OB/G YN [address] [place] [address] 07/23/2020 11:12:35 07/23/2020 11:44:29 Dyspareunia 38855763 N94.10 On examina tion - vaginal discharge 184735910 N89.8 Venereal d isease screening 272989998 Z11.3 Viral screening 55490957 4 Z11.59 [id number] RYAN RILEY CNP [facility]_OB/G YN [address] [place] [place] [address] 10/19/2020 15:13:52 10/19/2020 15:40:14 Gynecologic examination 93252642 Z01.419 Contracept ion care management 286350379 Z30.9 [id number] Cam Mathew MD [facility]_OB/G YN [address] [place] [address] 03/30/2021 11:19:24 03/30/2021 12:06:16 Vaginal discharge 812173954 N89.8 [id number] RYAN RILEY CNP [facility]OB[facility]G [facility] [address] [facility] [place] [address] 08/05/2021 09:45:33 08/05/2021 10:07:14 Vaginal discharge 766999740 N89.8 Health Concerns Section Related Observation LastModified by Organization Detai ls LastModified Time None Recorded Concern Status LastModified by Organization Details LastModified Time None Recorded Advance Directives Directive N: Payers Encounter Date Sequence Insurance Name Policy Number Policy Adam Covered Member ID Adam Member ID Guarantor Name 02/17/2020 1 [place] [employer] [place] [id number] Radha Cabello [id number] Castillo 07/23/2020 1 [place] [id number] Radha Pazos [id number] Gillian Segars 10/19/2020 1 [place] [id number] Radha Pazos [id number] Gillian Segars 03/30/2021 1 [place] [id number] Radha Candice Ruddtros [id number] Gillian Segars 08/05/2021 1 [place] [id number] Radha Pazos [id number] Gillian Segars Notes Date Note Type Note Provider Name and Address Organization Details Recorded Time 02/17/2020 text/html 20 year old presents for Nexplanon removal.Patient has feelings of nausea and hair is falling out.Inserted 10/01/19.Desires to go back to OCP. RYAN RILEY CNP [address] [place], [address], [facility] 02/17/2020 15:25:17 07/23/2020 text/html 20 year old presents for dyspareunia.LMP: 07/12/20. On OCPs.Started noticing this concern Jun 2020. The pain is sharp and occurs during both penetration and during intercourse.No post coital bleeding.No abnormal discharge, itching, or odor. RYAN RILEY CNP [address] [place], [address], [facility] 07/23/2020 11:43:07 10/19/2020 text/html 20 year old presents for annual CHISELER HEAD examination.LMP: 10/12/20. Regular. No issues.No paps yet.On OCP 10/06 Fe for contraception.Sabina ent gets spotting light brown when initially starting pill pack. Will increase OCP dose to see if that helps.No abnormal discharge, itching. or odor.No urinary concerns.Not SA for the past few months.No other concerns. RYAN RILEY, AMBER [address] [place], [address], [facility] 10/19/2020 15:58:35 03/30/2021 text/html Has been having more weird discharge since the beginning of February. Discharge was brownish/yellowish and then noticed an odor to it possibly fishy but resolved now. Period came the second week in February and the symptoms continued even after using diflucan for suspected yeast infection. Started feeling itchy just before period started and during the first part of the period but it has now subsided. Currently only noticing discharge. No further odor or itching. Not currently sexually active with most recent intercourse at the end of January just prior to the discharge starting. Usually uses condoms but the condom broke at the time. Cam Mathew MD [address] [place], [address], [facility] 03/30/2021 17:53:06 08/05/2021 text/html 21 year old presents for abnormal discharge and odor.LMP: 07/28/21Patient noticed symptoms 1.5 weeks ago. Abnormal yellowish thin discharge with odor.No urinary concerns.SA. 1 partner. Condoms sometimes. RYAN RILEY CNP [address] [place], [id number], [facility] 08/05/2021 10:05:07 OBGyn Episode No OBEpisode recorded.
--- NOTE | 2024-11-29 14:40 | OBADM ---
This patient, Gillian Sullivan, admitted to the OB room [facility] for observation. Patient/family oriented to hospital policies and general routines including ID bracelet, bed and alarms, visiting hours, pain management, procedures, bathroom and other care routines, personal items, smoking policy, room service/diet, and visiting hours. Patient/Family are encouraged to report perceived risks to care and to ask questions if they do not understand what they are told or what they should do.
--- NOTE | 2024-11-29 15:25 | PC.NURSE ---
2740- Spoke with Dr. Martinez regarding patient admission for dizziness, nausea, pain under R rib. Patient sees an HOSPICE PLAN ADMINISTRATOR at [facility]. States her last appointment was Sunday. No complications with per patient. NST reactive. Vitals normal. Will do orthostatic BPs. No labs at this time. Will discharge to home, patient to rest and stay hydrated. If symptoms do not decrease or become worse, patient to return to hospital.
--- NOTE | 2024-12-24 09:44 | PM.OBTRLD ---
OB - Triage/Final Diagnosis Visit Information Comments/Additional reasons for admission: I have assessed the risk for this patient, Gillian Sullivan, and determined that she would benefit from observation care. Final Diagnosis (1) Abdominal pain: Code(s): R10.9 - Unspecified abdominal pain Status: Acute
== END 2024-11-29 15:23 | disposition home or self-care (01) ==
PROVIDERS: Admitting Provider Obstetrics & Gynecology; Visit Provider Obstetrics & Gynecology
DX: O26.893 Other specified pregnancy related conditions, third trimester (principal); R10.9 Unspecified abdominal pain; Z3A.32 32 weeks gestation of pregnancy
CPT/HCPCS: G0378; G0379